=== PATIENT | female | born 1965 | race Caucasian/White ===

== ENCOUNTER 2021-01-30 13:28 | Outpatient (REF) | payer BC, SELFPAY ==
[2021-01-31 01:47] LABS: CT PCR NOT DETECTED (Not Detect.); NG PCR NOT DETECTED (Not Detect.)
[2021-02-02 06:07] LABS: HPV mRNA E6/E7 rflx Not Detected (Not Detected)
== END 2021-01-30 13:29 | disposition home or self-care (01) ==
LOC: HO.LAB 13:28
PROVIDERS: PCP Internal Medicine; Visit Provider Advanced Practice Midwife
DX: Z01.419 Encounter for gynecological examination (general) (routine) without abnormal findings (principal); Z11.51 Encounter for screening for human papillomavirus (HPV); N88.9 Noninflammatory disorder of cervix uteri, unspecified
CPT/HCPCS: 87491; 87591; 87624; 88142

== ENCOUNTER 2021-02-02 08:39 | Outpatient (REF) | payer BC, SELFPAY ==
[2021-02-02 10:05] LABS: Alanine Aminotransferase 16 U/L (0-31); Albumin Level 4.5 g/dL (3.5-5.0); Alkaline Phosphatase 61 U/L (39-117); Anion Gap 12 (12-20); Aspartate Amino Transferase 15 U/L (5-31); Bilirubin Total 0.8 mg/dL (0.0-1.0); Blood Urea Nitrogen 10 mg/dL (9-16); Calcium 9.9 mg/dL (8.4-10.2); Carbon Dioxide 30 mmol/L (22-29); Chloride 102 mmol/L (96-108); Cholesterol 195 mg/dL; Estimated Glomerular Filt Rate > 60; Glucose Fasting 111 mg/dL (60-99); HDL Cholesterol 81 mg/dL; LDL Cholesterol Calculated 102 mg/dl; Potassium 4.2 mmol/L (3.3-5.1); Sodium 140 mmol/L (135-145); Total Protein 7.1 g/dL (6.5-8.0); Triglycerides 63 mg/dL
[2021-02-06 11:16] LABS: Vitamin D 25-OH, D2 <4 ng/mL; Vitamin D 25-OH, D3 24 ng/mL; Vitamin D 25-OH, Total 24 ng/mL (30-100)
== END 2021-02-02 08:40 | disposition home or self-care (01) ==
LOC: HO.LAB 08:39
PROVIDERS: PCP Internal Medicine; Visit Provider Internal Medicine
DX: E66.3 Overweight (principal); E78.5 Hyperlipidemia, unspecified; E55.9 Vitamin D deficiency, unspecified
CPT/HCPCS: 36415; 80053; 80061; 82306

== ENCOUNTER → 2021-02-22 13:55 | Outpatient (BNVA) | payer BC, SELFPAY | PROVIDERS: PCP Internal Medicine; Visit Provider Obstetrics & Gynecology ==

== ENCOUNTER 2021-03-13 15:14 | Outpatient (REF) | payer BC, SELFPAY ==
--- NOTE | ~2021-03-13 | MM_ITS ---
EXAMINATION: MM SCREENING DIGITAL BREAST TOMOSYNTHESIS, BILATERAL CLINICAL INFORMATION: Screening. Asymptomatic. The lifetime risk of breast cancer based on the Tyrer-Cuzick Model is 7%. COMPARISON: Mammography: 01/05/2016, outside exam 02/23/2014 ([facility], [place]). TECHNIQUE: Digital mammography is performed in craniocaudal and mediolateral oblique views along with computer-aided detection (CAD). Digital breast tomosynthesis is performed in implant-displaced craniocaudal and implant-displaced mediolateral oblique views along with computer-aided detection (CAD). Synthesized 2D images are generated from the tomosynthesis. FINDINGS: There are scattered areas of fibroglandular density (ACR BI-RADS breast composition Category b). There are bilateral implants. The implant contours are smooth and similar to prior exams. Parenchymal pattern is similar to prior studies. There is no developing density or interval mass or architectural abnormality. No abnormal calcifications. The skin contours are smooth. MM/MM tomosynthesis screen imp BI IMPRESSION: No mammographic evidence of malignancy. ASSESSMENT: BI-RADS 1: Negative RECOMMENDATION: Routine annual mammography screening. This patient's information was entered into a reminder system with a target due date for their next mammogram.
== END 2021-03-13 15:15 | disposition home or self-care (01) ==
LOC: HO.MAMMO 15:14
PROVIDERS: Visit Provider Advanced Practice Midwife
DX: Z12.31 Encounter for screening mammogram for malignant neoplasm of breast (principal)
CPT/HCPCS: 77063; 77067

== ENCOUNTER → 2022-02-04 12:54 | Outpatient (BNVA) | payer BC, SELFPAY | PROVIDERS: PCP Internal Medicine; Visit Provider Advanced Practice Midwife | DX: Z01.419 Encounter for gynecological examination (general) (routine) without abnormal findings (principal) ==

== ENCOUNTER 2022-03-31 06:19 | Emergency (ER) | payer BC, SELFPAY ==
--- NOTE | 2022-03-31 | ECG_ITS ---
Test Reason : PALPITATIONS Blood Pressure : / mmHG Vent. Rate : 101 BPM Atrial Rate : 101 BPM P-R Int : 132 ms QRS Dur : 084 ms QT Int : 336 ms P-R-T Axes : 068 053 044 degrees QTc Int : 435 ms Sinus tachycardia Nonspecific ST abnormality Abnormal ECG No previous ECGs available Referred By: Kisha Monroy Electronically Signed By:ROSEANN GAGNON MD
--- NOTE | ~2022-03-31 | XR_ITS ---
EXAMINATION: XR CHEST CLINICAL INFORMATION: Cough COMPARISON: None TECHNIQUE: Frontal view of the chest was obtained. FINDINGS: Cardiac leads overlie the chest. The lungs are well expanded. There is no focal consolidation, edema, or effusion. No pneumothorax. The cardiomediastinal silhouette is within normal limits. No acute osseous abnormality. XR/XR chest 1V IMPRESSION: Clear lungs.
[2022-03-31 06:30] VITALS: BP 200/99; PULSE 114; RESP 20; TEMP 36.6; O2SAT 97; BMI 18.9
--- NOTE | 2022-03-31 06:37 | ED.GENADULT ---
HPI - General Adult General Chief complaint: Arrhythmia/Palpitations Stated complaint: Fast heart rate/lump in throat Time Seen by Provider: 03/31/22 06:37 Source: patient Mode of arrival: ambulatory History of Present Illness HPI narrative: 57-year-old female with diagnosis of hypertension approximately 1 year ago but states she did not start taking any medication as she thought she could control it with lifestyle changes by losing weight and cutting salt content who presents with complaints of racing heart and feeling a ?lump at her upper sternal border and then saying that she was having some discomfort to her left upper extremity. The symptoms have been ongoing and worsening for the past 2-3 days, they have been associated with sweating but she denies dizziness or nausea or shortness of breath at this time. She denies chest pain. Related Data Previous Rx's Medication Instructions Recorded hydrochlorothiazide 12.5 mg capsule 12.5 mg PO DAILY #30 caps 03/31/22 Allergies Allergy/AdvReac Type Severity Reaction Status Date / Time No Known Allergies Allergy Verified 02/04/22 13:05 Review of Systems Review of Systems: Pertinent positives and negatives as stated in HPI 10 point review of systems is otherwise negative. [facility] Past Medical History Source: nursing notes reviewed Medical History Essential hypertension Hypovitaminosis D Overweight Surgical History Hx of breast implants, bilateral Family History Family History Unknown Adopted Social History Social History Alcohol intake: current Alcohol intake frequency: former alcohol drinker Alcohol type: wine Patient Tobacco Use Status: Never used Tobacco Use of substances other than those prescribed or required for medical reasons: No Advance Directives: No Gender identity: Female Physical Exam ED Vital Signs: Vital Signs - 24 hr 03/31/22 06:30 03/31/22 07:43 03/31/22 08:03 Temperature 97.9 F Pulse Rate 114 H 82 81 Respiratory Rate 20 20 Blood Pressure 200/99 H 188/88 H 175/83 H Pulse Oximetry 97 Oxygen Delivery Method Room Air 03/31/22 08:15 03/31/22 08:36 03/31/22 09:19 Temperature Pulse Rate 83 81 80 Respiratory Rate Blood Pressure 173/81 H 165/82 H 164/74 H Pulse Oximetry Oxygen Delivery Method BMI result Body Mass Index 18.9 VITAL SIGNS: Reviewed. GENERAL: Well developed, well nourished, in no acute distress. HEAD: Normocephalic/atraumatic, EYES: PERRLA, EOMI EARS: Ext canals without abnormality OROPHARYNX: no oral lesions noted, posterior pharynx clear and non-erythematous without noted tonsillar enlargement/erythema/exudates NECK: Supple, no adenopathy LUNGS: Normal breath sounds. No adventitious sounds or accessory muscle use. SpO2<97> CARDIOVASCULAR: Regular rate and rhythm without noted murmurs, no JVD or lower extremity edema. ABDOMEN: Soft, non-tender, non-distended with bowel sounds. MUSCULOSKELETAL: No tenderness, deformities, or effusions noted on gross inspection. EXTREMITIES: No cyanosis, clubbing or edema. SKIN: Inspection of the skin reveals no rashes NEUROLOGIC: Alert and oriented x 4. Strength and sensation to light touch were grossly intact x 4, no facial asymmetry, no pronator drift, cranial nerves 2-12 grossly intact. Course Course Course Narrative: Do 7-year-old female with history and clinical presentation concerning for possible cardiac event versus thyroid condition (due to the lump) and on EKG is noted to be sinus tachycardia with global ST depressions in the lateral and inferior leads. Patient received aspirin, she is also noted to be hypertensive and otherwise nonfocal and will receive medications for blood pressure reduction as well as basic labs. Review of all investigations negative for findings of an elevated troponin, chest x-ray without acute findings and otherwise no further explanation for patient's symptoms other than hypertensive urgency and on repeat EKG there is been almost complete resolution of noted ST depressions which were likely secondary to the hypertension that she was experiencing. All results were discussed with her bedside she was counseled regarding alcohol use as well as diet and she will go home with initial medications for blood pressure as well as a referral to follow-up with cardiology. Reevaluation(s) Reevaluation #1: Patient states she feels much better, blood pressure has improved significantly after receiving 2.5 mg of labetalol. Patient did endorse that she uses alcohol and knee reluctant manner stated that she does sometimes use every day or every other day and her last drink was yesterday. She denies any headache go or tremulous feelings. She will be discharged on medications and will repeat the EKG. Time: 09:11 Medical Decision Making Lab Data Result diagrams: 03/31/22 06:52 03/31/22 07:30 Labs: Lab Results 03/31/22 03/31/22 03/31/22 Range/Units 06:52 06:52 06:52 WBC 8.5 (4.8-10.8) X10*3/uL RBC 4.22 (4.20-5.50) X10*6/uL Hgb 13.3 (12.0-16.0) g/dl Hct 40.2 (37.0-47.0) % MCV 95.3 (80.0-98.0) fL MCH 31.5 (27.0-33.0) pg MCHC 33.1 (31.0-35.0) g/dl RDW 12.5 (11.0-16.0) % Plt Count 249 (160-400) X10*3/uL MPV 10.4 (9.4-12.3) fL Immature Gran % (Auto) 0.5 H (0.0-0.4) % Neut % (Auto) 70.1 (45-73) % Lymph % (Auto) 18.3 L (20-40) % Crowley % (Auto) 10.0 (2-11) % Eos % (Auto) 0.7 (0-4) % Baso % (Auto) 0.4 (0-2) % Lymph # (Auto) 1.6 (1.2-4.9) X10*3/uL Crowley # (Auto) 0.9 (0.1-1.2) X10*3/uL Eos # (Auto) 0.1 (0.0-0.4) X10*3/uL Baso # (Auto) 0.0 (0.0-0.2) X10*3/uL Abs Immat Gran (auto) 0.04 H (0.00-0.03) X10*3/uL Absolute Neuts (auto) 6.0 (2.0-8.3) x10*3/uL Absolute Nucleated RBC 0.000 (0.0-0.012) X10*3/uL Nucleated RBC % (auto) 0.0 (0.0-0.2) /100WBC PT 10.3 (10.0-13.1) SEC INR 0.9 (0.9-1.1) Sodium (135-145) mmol/L Potassium (3.3-5.1) mmol/L Chloride (96-108) mmol/L Carbon Dioxide (22-29) mmol/L Anion Gap (12-20) BUN (9-16) mg/dL Creatinine (0.5-1.4) mg/dL Estim Creat Clear Calc Estimated GFR Random Glucose (60-115) mg/dL Calcium (8.4-10.2) mg/dL Total Bilirubin (0.0-1.0) mg/dL AST (5-31) U/L ALT (0-31) U/L Alkaline Phosphatase (39-117) U/L Troponin I High Sens (<3.5-17.0) ng/L Total Protein (6.5-8.0) g/dL Albumin (3.5-5.0) g/dL TSH (0.32-4.0) uIU/mL Urine Color Urine Appearance Urine pH (5.0-8.0) Ur Specific [place] (1.005-1.025) Urine Protein (NEG-TRACE) MG/DL Urine Glucose (UA) (NEG) MG/DL Urine Ketones (NEG) MG/DL Urine Blood (NEG) Urine Nitrite (NEG) Ur Leukocyte Esterase (NEG) COVID-19 (KI) Negative (Negative) COVID-19 Clin Com See Note 03/31/22 03/31/22 03/31/22 Range/Units 06:52 07:30 08:39 WBC (4.8-10.8) X10*3/uL RBC (4.20-5.50) X10*6/uL Hgb (12.0-16.0) g/dl Hct (37.0-47.0) % MCV (80.0-98.0) fL MCH (27.0-33.0) pg MCHC (31.0-35.0) g/dl RDW (11.0-16.0) % Plt Count (160-400) X10*3/uL MPV (9.4-12.3) fL Immature Gran % (Auto) (0.0-0.4) % Neut % (Auto) (45-73) % Lymph % (Auto) (20-40) % Crowley % (Auto) (2-11) % Eos % (Auto) (0-4) % Baso % (Auto) (0-2) % Lymph # (Auto) (1.2-4.9) X10*3/uL Crowley # (Auto) (0.1-1.2) X10*3/uL Eos # (Auto) (0.0-0.4) X10*3/uL Baso # (Auto) (0.0-0.2) X10*3/uL Abs Immat Gran (auto) (0.00-0.03) X10*3/uL Absolute Neuts (auto) (2.0-8.3) x10*3/uL Absolute Nucleated RBC (0.0-0.012) X10*3/uL Nucleated RBC % (auto) (0.0-0.2) /100WBC PT (10.0-13.1) SEC INR (0.9-1.1) Sodium 137 (135-145) mmol/L Potassium 4.5 (3.3-5.1) mmol/L Chloride 102 (96-108) mmol/L Carbon Dioxide 24 (22-29) mmol/L Anion Gap 16 (12-20) BUN 6 L (9-16) mg/dL Creatinine 0.71 (0.5-1.4) mg/dL Estim Creat Clear Calc 69.6 Estimated GFR > 60 Random Glucose 122 H (60-115) mg/dL Calcium 9.5 (8.4-10.2) mg/dL Total Bilirubin 0.8 (0.0-1.0) mg/dL AST 25 D (5-31) U/L ALT 16 (0-31) U/L Alkaline Phosphatase 84 D (39-117) U/L Troponin I High Sens < 3.5 (<3.5-17.0) ng/L Total Protein 7.7 (6.5-8.0) g/dL Albumin 4.6 (3.5-5.0) g/dL TSH 0.98 (0.32-4.0) uIU/mL Urine Color STRAW Urine Appearance CLEAR Urine pH 7.0 (5.0-8.0) Ur Specific [place] <= 1.005 (1.005-1.025) Urine Protein NEG (NEG-TRACE) MG/DL Urine Glucose (UA) NEG (NEG) MG/DL Urine Ketones NEG (NEG) MG/DL Urine Blood NEG (NEG) Urine Nitrite NEG (NEG) Ur Leukocyte Esterase NEG (NEG) COVID-19 (KI) (Negative) COVID-19 Clin Com ECG Data Attestation: I personally reviewed and interpreted this ECG as follows: Prior ECG tracings: not available for review Interpretation: Sinus tachycardia, HR-101, no STEMI, ST depressions noted in V4/V5/B 6/lead I/lead II, CT/QRS/QTC are within normal limits. 1036: Normal sinus rhythm, heart rate 79, no STEMI, CT/QRS/QTC are within normal limits. There are remaining ST-T abnormalities. Discharge Plan Discharge Clinical Impression: Hypertensive urgency, Nonspecific ST-T changes Patient Disposition: Home, Self-Care Instructions: DASH Eating Plan (ED), Hypertensive Crisis (ED), Hypertension (ED), Alcohol Dependence (ED) Additional Instructions: 1. You need to start on 81 mg of aspirin daily. This is available [id number]. 2. You have been prescribed initial medication for high blood pressure, but you should also consider stopping alcohol intake in if you require supervision for this please notify your primary care provider. 3. You need to follow-up with cardiology for further testing, a referral has been provided to you below. 4. Call the office of your primary care provider today and schedule a follow-up appointment. Return to the ER for any worsening of symptoms. Prescriptions: New hydrochlorothiazide 12.5 mg capsule 12.5 mg PO DAILY Qty: 30 0RF Referrals: Adamaris Cantu MD [Primary Care Provider] - Raul Garcia MD [Physician] -
[2022-03-31 07:00] LABS: MANUAL DIFF FLAG NO
[2022-03-31 07:04] LABS: Basophils Percent Auto 0.4 % (0-2); Eosinophils Absolute Auto 0.1 X10*3/uL (0.0-0.4); Eosinophils Percent Auto 0.7 % (0-4); Hematocrit 40.2 % (37.0-47.0); Hemoglobin 13.3 g/dl (12.0-16.0); Imm Gran Abs Auto 0.04 X10*3/uL (0.00-0.03); Imm Gran Pct Auto 0.5 % (0.0-0.4); Lymphocytes Absolute Auto 1.6 X10*3/uL (1.2-4.9); Lymphocytes Percent Auto 18.3 % (20-40); Mean Corpuscular HGB Conc 33.1 g/dl (31.0-35.0); Mean Corpuscular Hemoglobin 31.5 pg (27.0-33.0); Mean Corpuscular Volume 95.3 fL (80.0-98.0); Mean Platelet Volume 10.4 fL (9.4-12.3); Monocytes Absolute Auto 0.9 X10*3/uL (0.1-1.2); Neutrophils Percent Auto 70.1 % (45-73); Platelet Count 249 X10*3/uL (160-400); Red Blood Count 4.22 X10*6/uL (4.20-5.50); Red Cell Distribution Width 12.5 % (11.0-16.0); White Blood Count 8.5 X10*3/uL (4.8-10.8)
[2022-03-31 07:11] LABS: INTERNATIONAL NORM RATIO 0.9 (0.9-1.1); Prothrombin Time 10.3 SEC (10.0-13.1)
[2022-03-31 07:19] LABS: COVID-19 Test Negative (Negative); IDNOW Serial# 55D5AD1C
[2022-03-31 07:27] LABS: Troponin-I High Sensitivity < 3.5 ng/L (<3.5-17.0)
[2022-03-31] MEDS: Aspirin 81 MG TAB.CHEW 324 MG PO (07:41)
[2022-03-31 07:43] VITALS: BP 188/88; PULSE 82; RESP 20
[2022-03-31 08:02] LABS: Alanine Aminotransferase 16 U/L (0-31); Albumin Level 4.6 g/dL (3.5-5.0); Alkaline Phosphatase 84 U/L (39-117); Anion Gap 16 (12-20); Aspartate Amino Transferase 25 U/L (5-31); Bilirubin Total 0.8 mg/dL (0.0-1.0); Blood Urea Nitrogen 6 mg/dL (9-16); Calcium 9.5 mg/dL (8.4-10.2); Carbon Dioxide 24 mmol/L (22-29); Chloride 102 mmol/L (96-108); Creatinine Clr Calc Pharmacy 69.6; Estimated Glomerular Filt Rate > 60; Glucose Random 122 mg/dL (60-115); Potassium 4.5 mmol/L (3.3-5.1); Sodium 137 mmol/L (135-145); Total Protein 7.7 g/dL (6.5-8.0)
[2022-03-31 08:03] VITALS: BP 175/83; PULSE 81
[2022-03-31 08:15] VITALS: BP 173/81; PULSE 83
[2022-03-31 08:20] LABS: Thyroid Stimulating Hormone 0.98 uIU/mL (0.32-4.0)
[2022-03-31 08:36] VITALS: BP 165/82; PULSE 81
[2022-03-31 08:46] LABS: Appearance Urine CLEAR; Color Urine STRAW; Glucose Urine UA NEG (NEG); Leukocyte Esterase Urine NEG (NEG); Nitrite Urine NEG (NEG); Specific Gravity - Urine <= 1.005 (1.005-1.025); Urine Blood NEG (NEG); Urine Ketones NEG (NEG); Urine Protein NEG (NEG-TRACE)
--- NOTE | 2022-03-31 09:14 | ECG_ITS ---
Test Reason : SOB Blood Pressure : / mmHG Vent. Rate : 079 BPM Atrial Rate : 079 BPM P-R Int : 154 ms QRS Dur : 086 ms QT Int : 396 ms P-R-T Axes : 060 039 042 degrees QTc Int : 454 ms Normal sinus rhythm Nonspecific ST and T wave abnormality Abnormal ECG When compared with ECG of 31-MAR-2022 06:17, Nonspecific T wave abnormality now evident in Anterior leads Referred By: Kisha Monroy Electronically Signed By:ROSEANN GAGNON MD
[2022-03-31 09:19] VITALS: BP 164/74; PULSE 80
== END 2022-03-31 11:14 | disposition home or self-care (01) ==
PROVIDERS: Emergency Provider Student in an Organized Health Care Education/Training Program; PCP Internal Medicine
DX: I49.9 Cardiac arrhythmia, unspecified (principal); R00.2 Palpitations; I16.0 Hypertensive urgency; Z20.822 Contact with and (suspected) exposure to COVID-19; Z79.899 Other long term (current) drug therapy
CPT/HCPCS: 36415; 71045; 80053; 81003; 84443; 84484; 85025; 85610; 87635; 93005; 96374; 99284; 99285

== ENCOUNTER 2022-09-27 10:35 | Outpatient (REF) | payer BC, SELFPAY ==
--- NOTE | ~2022-09-27 | MM_ITS ---
EXAMINATION: MM SCREENING DIGITAL BREAST TOMOSYNTHESIS, BILATERAL CLINICAL INFORMATION: Screening. Asymptomatic. The lifetime risk of breast cancer based on the Tyrer-Cuzick Model is 6%. COMPARISON: Mammography: 03/13/2021, 01/05/2016; outside mammography 02/23/2014 ([facility]). TECHNIQUE: Digital mammography is performed in craniocaudal and mediolateral oblique views along with computer-aided detection (CAD). Digital breast tomosynthesis is performed in implant-displaced craniocaudal and implant-displaced mediolateral oblique views along with computer-aided detection (CAD). Synthesized 2D images are generated from the tomosynthesis. FINDINGS: There are scattered areas of fibroglandular density (ACR BI-RADS breast composition Category b). There are no significant masses, abnormal calcifications, or other abnormalities. No architectural abnormality or developing density. There is a small dermal lesion again seen overlying the lower right breast on MLO view, previously marked with skin marker. There are bilateral implants with smooth contours are similar to prior studies. The axilla are unremarkable. MM/MM tomosynthesis screen imp BI IMPRESSION: No mammographic evidence of malignancy. ASSESSMENT: BI-RADS 2: Benign RECOMMENDATION: Routine annual mammography screening. This patient's information was entered into a reminder system with a target due date for their next mammogram.
== END 2022-09-27 10:36 | disposition home or self-care (01) ==
LOC: HO.MAMMO 10:35
PROVIDERS: PCP Internal Medicine; Visit Provider Advanced Practice Midwife
DX: Z12.31 Encounter for screening mammogram for malignant neoplasm of breast (principal)
CPT/HCPCS: 77063; 77067

== ENCOUNTER → 2023-02-10 12:58 | Outpatient (BNVA) | payer BC, SELFPAY | PROVIDERS: PCP Internal Medicine; Visit Provider Advanced Practice Midwife ==

== ENCOUNTER 2023-03-31 13:47 | Outpatient (REF) | payer BC, SELFPAY | END 2023-03-31 13:48 | disposition home or self-care (01) | LOC: HO.LNP 13:47 | PROVIDERS: PCP Internal Medicine; Visit Provider Obstetrics & Gynecology | DX: N88.9 Noninflammatory disorder of cervix uteri, unspecified (principal); R14.0 Abdominal distension (gaseous) | CPT/HCPCS: 57500; 88305 ==

== ENCOUNTER 2023-03-31 13:47 | Outpatient (AMB) | payer BC, SELFPAY ==
--- NOTE | 2023-03-31 13:56 | MHC.OFFVIS ---
Intake Vital Signs 03/31/23 14:00 Height 5 ft 5 in Weight 147 lb BMI 24.5 BP 140/90 H Intake Visit Reasons: cervical lesion Consult Electrocardiograph Operator Required: No Information Interpreted: non-clinical & clinical Chemical Laboratory Scientist: Chemical Laboratory Scientist Present (Jenny) Allergies No Known Allergies Allergy (Verified 03/31/23 14:02) Is last menstrual period known: No Post menopausal: Yes HPI HPI Comments History of Present Illness Details Presenting referred from Sarahy Estrada regarding abnormal cervical lesion on pelvic exam. Last Pap smear/HPV was in 02/08 was negative. The patient is complaining of bloating over the last few months no associated vaginal bleeding or discharge PFSH Medical History Essential hypertension Hypovitaminosis D Overweight Surgical History Hx of breast implants, bilateral Family History Unknown Adopted Social History Housing: House Alcohol intake: current Alcohol intake frequency: a few times a week Alcohol type: wine Patient Tobacco Use Status: Never used Tobacco e-Cigarette/Vaping Use: Never Used Second Hand Smoke Exposure: No service: No Current occupational status: employed Current occupational exposures/hazards: No Gender identity: Female Cognitive needs: No Hearing needs: No Vision needs: Yes Female Reproductive History Menstrual Age of Menarche: 11 control method: none Total pregnancies: 4 Full term: 4 Number of Living Children: 4 Date of last pap smear: 01/31/21 (negative) Review of Systems Const All systems reviewed & are unremarkable except as noted in HPI and below Physical Exam Vital Signs: Last Vital Signs BP 140/90 H 03/31/23 14:00 BMI result Body Mass Index 24.5 General: Yes no CVA tenderness External Female Exam: normal external appearance and normal appearance of the urethra Speculum Exam - Vagina: normal appearance of the vagina, normal palpation, no lesions and no masses Speculum Exam - Cervix: normal palpation, no lesions, no masses, nontender and Other cervical findings present (Posterior cervical lesion) Bimanual exam- vagina & uterus: normal bimanual exam, normal palpation, uterine size normal, normal palpation, uterine shape normal, No Cervical tenderness present and non-tender Bimanual Exam- Adnexa, other: normal adnexae Back/Spine/Pelvis Back: no CVA tenderness Office Procedures RESPIRATORY DIRECTOR Biopsy Before the procedure was started, discussed with the patient the procedure technique, alternatives & all the risks associated with the procedure including but not limited to: bleeding , infection, uterine perforation, injury to bladder, vessels, bowels, possible need for transfusion with all its risks, and others. All questions were answered, the patient verbalized understanding and signed the consent. Using a punch biopsy forceps the posterior cervical lesion was biopsy, hemostasis was secured using Monsel solution and pressure. The patient tolerated the procedure well. Instructions were given to the patient to call if bleeding, temp>100.4 occur. The patient verbalized understanding and agreed with the plan. This note was generated with a voice recognition program. Some errors may have been overlooked during the review of this note. Sometimes these errors may affect the content or meaning of a given sentence. [id number] of Cervix Procedure code (CPT) selection complete Assessment & Plan Assessment & Plan (1) Lesion of cervix: Code(s): N88.9 - Noninflammatory disorder of cervix uteri, unspecified Plan: Discussed with the patient the finding on pelvic exam showing a posterior cervical lesion, recommended cervical biopsy. Biopsy done, see procedure note (2) Bloating: Code(s): R14.0 - Abdominal distension (gaseous) Plan: Will order pelvic ultrasound to rule out uterine/ovarian pathology. Instructions given the patient to schedule a 2 week ultrasound follow-up appointment Orders: Orders US pelvic and transvaginal Today R14.0 - Abdominal distension (gaseous) AMB RESPIRATORY DIRECTOR Biopsy Today N88.9 - Noninflammatory disorder of cervix uteri, unspecified Coding Level of Care Code Est Pt Level 3 (00392) Procedure Only Diagnoses Lesion of cervix N88.9 Bloating R14.0 CPT Codes RESPIRATORY DIRECTOR Biopsy - CPT: 25880-Wejmxa of Cervix ([id number])
[2023-03-31 14:00] VITALS: BP 140/90; BMI 24.5
== END 2023-03-31 15:27 | disposition home or self-care (01) ==
LOC: HO.HWS 13:47
PROVIDERS: PCP Internal Medicine; Visit Provider Obstetrics & Gynecology
DX: N88.9 Noninflammatory disorder of cervix uteri, unspecified (principal); R14.0 Abdominal distension (gaseous)
CPT/HCPCS: 57500; 99213

== ENCOUNTER 2023-04-10 15:47 | Outpatient (REF) | payer BC, SELFPAY ==
--- NOTE | ~2023-04-10 | US_ITS ---
EXAMINATION: US PELVIS CLINICAL INFORMATION: Gaseous abdominal distention, last menstrual period 15 years ago. Postmenopausal. COMPARISON: None available. TECHNIQUE: Transabdominal and transvaginal ultrasound images of the pelvis were obtained. Limited visualization due to bowel gas. FINDINGS: The uterus is heterogeneous, anteverted and measures 6.6 x 2.0 x 3.7 cm. No discrete fibroids identified. There is no significant free fluid. Endometrial thickness is 0.4 cm. Limited visualization of endometrium due to uterine positioning and bowel gas. Left ovary not visualized. Prominent left adnexal vasculature may represent pelvic congestion syndrome. Right ovary measures 1.1 x 1.8 x 0.8 cm, volume 0.8 mL. Right ovary is grossly unremarkable on limited images. US/US pelvic and transvaginal IMPRESSION: 1. Heterogeneous uterus. No discrete fibroids. 2. Endometrial thickness is 0.4 cm. Limited visualization. 3. Left ovary not visualized. Right ovary grossly unremarkable on limited images. 4. Prominent left adnexal vasculature may represent pelvic congestion syndrome. 5. Limited visualization due to bowel gas.
== END 2023-04-10 15:48 | disposition home or self-care (01) ==
LOC: HO.US 15:47
PROVIDERS: PCP Internal Medicine; Visit Provider Obstetrics & Gynecology
DX: R14.0 Abdominal distension (gaseous) (principal)
CPT/HCPCS: 76830; 76856

== ENCOUNTER → 2023-04-30 15:11 | Outpatient (BNVA) | payer BC, SELFPAY | PROVIDERS: PCP Internal Medicine; Visit Provider Obstetrics & Gynecology ==

== ENCOUNTER 2023-06-08 06:29 | Day surgery (SDC) | payer BC, SELFPAY ==
[2023-06-08 06:59] VITALS: BP 152/89; PULSE 76; RESP 18; TEMP 36.1; O2SAT 100; BMI 24.1
--- NOTE | 2023-06-08 07:23 | HO.ANESPROP2 ---
HPI - Anesthesia Eval Consult details Narrative: 58 F for colonoscopy PMFSH Active Problems Active Problems: All Active Problems (Updated 03/31/23 @ 14:12 by Everardo Lopez MD) Bloating (Acute) Tubular adenoma (Acute) Physical exam (Acute) Impaired glucose tolerance (Acute) Hospital discharge follow-up (Acute) Rosacea (Acute) Abnormal EKG (Acute) Encounter for screening mammogram for malignant neoplasm of breast (Acute) Encounter for annual routine gynecological examination (Acute) Essential hypertension (Acute) Lesion of cervix (Acute) Hypovitaminosis D (Acute) Overweight (Acute) Past Medical History Medical History Essential hypertension Hypovitaminosis D Overweight Functional capacity: independent ambulation Family History Family History (Reviewed 04/30/23 @ 15: by Everardo Lopez MD) Unknown Adopted Family history of problems with anesthesia: Unobtainable Surgical History Surgical History (Reviewed 04/30/23 @ 15: by Everardo Lopez MD) Hx of breast implants, bilateral History of Problems with Anesthesia: No Social History Social History Housing: House Alcohol intake: current Alcohol intake frequency: a few times a week Alcohol type: wine Patient Tobacco Use Status: Never used Tobacco e-Cigarette/Vaping Use: Never Used Second Hand Smoke Exposure: No Have you been hit, kicked, punched, or otherwise hurt by someone within the past year? If so, by whom?: No Are you DNR?: No Advance Directives: No Advance Directives Information Provided: Yes Recently lost weight without trying: No Eating poorly because of decreased appetite: No Nutrition Risks: No Nutritional Risk Patient : No service: No Current occupational status: employed Current occupational exposures/hazards: No Gender identity: Female Cognitive needs: No Hearing needs: No Vision needs: Yes Meds Allergies Allergy/AdvReac Type Severity Reaction Status Date / Time No Known Allergies Allergy Verified 04/30/23 15:11 Active Medications: Current Medications Sodium Biphosphate/Sodium Phosphate (Sodium Phosphate,[place]-Dibasic 133 Ml Enema) 133 ml NC ONCE PRN PRN Reason: Poor Colonoscopy Prep Results Exam Exam Date and Time: June 08, 2023 0723 Height,Weight and Vital Signs: Height 5 ft 5 in Weight 65.771 kg Last Vital Signs Temp 96.9 F 06/08/23 06:59 Pulse 76 06/08/23 06:59 Resp 18 06/08/23 06:59 BP 152/89 H 06/08/23 06:59 Pulse Ox 100 06/08/23 06:59 O2 Del Method Room Air 06/08/23 06:59 Airway Mallampati Class: IV Neck ROM: Full Loose/Missing/Broken Teeth: Yes Assessment and Plan Assessment Anesthesia Assessment: Anesthesia Plan Discussed and Chart Reviewed Final Anesthetic Review Family History of Problems with Anesthesia: Unobtainable History of Problems with Anesthesia: No NPO: Yes ASA Class: II Final Preanesthetic Review: Meds/Allgs Chart Reviewed, Consent Obtained/Reviewed and Anes Risks/Benef Reviewed Patient Risk: Intermediate Procedure Risk: Intermediate Anesthetic Plan Anesthetic Plan: MAC: Disposition: Standard PACU
[2023-06-08] MEDS: Lactated Ringers 1,000 ML 100 ML IVCONT (07:25)
[2023-06-08 08:23] VITALS: BP 107/66; PULSE 87; RESP 16; TEMP 36.7; O2SAT 100
--- NOTE | 2023-06-08 08:28 | P.BOP_ITS ---
Brief Operative Note Date of Service: 06/08/23 Pre-op diagnosis: Screening Post-op diagnosis: other (Diverticulosis) Procedure: Colonoscopy to the cecum Surgeon: Kang Villa Anesthesia: MAC Was an Home Improvement Advisor used for this Procedure?: No Estimated blood loss (mL): 0 Pathology: none sent Condition: stable Disposition: PACU
[2023-06-08 08:37] VITALS: BP 125/71; PULSE 60; RESP 18; O2SAT 98
[2023-06-08 08:55] VITALS: TEMP 36.7
--- NOTE | 2023-06-08 09:09 | OP_ITS ---
DATE OF SERVICE: 06/08/2023 SURGEON: Kang Villa MD INDICATIONS: The patient presents for evaluation of personal history of tubular adenoma of the colon and colorectal cancer screening. Full consent has been obtained from her for this, including risks of bleeding and perforation. PREOPERATIVE DIAGNOSIS: POSTOPERATIVE DIAGNOSIS: PROCEDURE PERFORMED: Colonoscopy to the cecum. ESTIMATED BLOOD LOSS: COMPLICATIONS: ANESTHESIA: Medication used, monitored anesthesia care. ASSISTANTS: SPECIMENS: PREOPERATIVE DIAGNOSES: Colorectal cancer screening and personal history of tubular adenoma of the colon. POSTOPERATIVE DIAGNOSES: Colorectal cancer screening and personal history of tubular adenoma of the colon, mild sigmoid diverticulosis, small internal hemorrhoids. DESCRIPTION OF PROCEDURE: The patient was placed in the left lateral decubitus position. The digital rectal exam revealed no abnormalities. The Olympus videopediatric colonoscope was entered into the rectum and advanced easily to the cecum. Once in the cecum, I did identify normal-appearing cecal pouch with appendiceal orifice and a normal-appearing ileocecal valve. There was transillumination of light deep in the right lower quadrant. The entire cecum and ileocecal valve appeared normal. The scope was slowly withdrawn assessing all mucosal surfaces carefully. Preparation was excellent. I did not visualize any sign of polyps, colitis, nor angiodysplasia. There was a mild amount of sigmoid diverticulosis. In the rectum, scope was retroflexed visualizing internal hemorrhoids, but no other pathology. The rectal mucosa appeared normal. The scope was straightened and withdrawn from the patient. She tolerated the procedure well and was returned to the recovery area in stable condition. IMPRESSION: 1. Mild sigmoid diverticulosis. 2. Small internal hemorrhoids. PLAN: Given her previous history, I would recommend a followup colonoscopy in 5 years for further screening. She will otherwise see me on a p.r.n. basis. MD BROOKE Jessica/DAISHA / [phone]
== END 2023-06-08 09:09 | disposition home or self-care (01) ==
PROVIDERS: PCP Internal Medicine; Visit Provider Internal Medicine
PROC: 0DJD8ZZ Inspection of Lower Intestinal Tract, Via Natural or Artificial Opening Endoscopic (ICD-10-PCS; CPT 45378; principal; 2023-06-08 07:30)
DX: Z12.11 Encounter for screening for malignant neoplasm of colon (principal); K57.30 Diverticulosis of large intestine without perforation or abscess without bleeding; K64.8 Other hemorrhoids; Z86.010 Personal history of colon polyps; I10 Essential (primary) hypertension; Z79.899 Other long term (current) drug therapy
CPT/HCPCS: 45378

== ENCOUNTER 2024-02-16 13:02 | Outpatient (AMB) | payer BC, SELFPAY ==
[2024-02-16 13:12] VITALS: BP 156/84; BMI 23.7
--- NOTE | 2024-02-16 13:12 | A.OFFVIS_ITS ---
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 She is doing well with no concerns. Attempting to eat a healthy diet with calcium and vitamin D and stays active with exercise. Currently not sexually active. Denies any vaginal dryness or irritation. STI testing offered; she declined. Last pap smear; 2020. Last mammogram; 2022. Colonoscopy is UTD. Patient is adopted, no family history. [facility] Medical History (Updated 02/16/24 @ 13:25 by Sarahy Estrada CNM) Essential hypertension Overweight Surgical History Hx of breast implants, bilateral Family History Unknown Adopted Social History Housing: House Alcohol intake: current Alcohol intake frequency: a few times a week Alcohol type: wine Patient Tobacco Use Status: Never used Tobacco e-Cigarette/Vaping Use: Never Used Second Hand Smoke Exposure: No service: No Current occupational status: employed Current occupational exposures/hazards: No Gender identity: Female Cognitive needs: No Hearing needs: No Vision needs: Yes Female Reproductive History Menstrual Age of Menarche: 11 Age of menopause: 41 Total pregnancies: 4 Full term: 4 Date of last pap smear: 01/31/21 History of abnormal pap smear: No Date of Mammogram: 10/28/22 Review of Systems Const All systems reviewed & are unremarkable except as noted in HPI and below Reports as per HPI Eyes Reports no additional complaints ENT Reports no additional complaints Card Reports no additional complaints Resp Reports no additional complaints GI Reports as per HPI and Reports no additional complaints Reports as per HPI Musc Reports no additional complaints Skin/Breast Reports as per HPI Neuro Reports no additional complaints Psych Reports no additional complaints Endo Reports no additional complaints Mango/Lymph Reports no additional complaints Aller/Immun Reports no additional complaints Physical Exam Vital Signs: Last Vital Signs BP 156/84 H 02/16/24 13:12 BMI result Body Mass Index 23.7 Const General: cooperative, healthy appearing, no acute distress, well developed and alert Orientation/consciousness: patient oriented x3 HEENT Head: Yes normal to inspection Eyes General: appearance normal, both eyes and all related structures Neck Neck: Yes normal visual inspection Thyroid: Thyroid normal Chest Chest palpation & inspection: normal inspection of the chest and other (no puckering, dimpling, peau de orange, retraction, discharge, masses) Breast/axilla inspection: normal inspection of the breasts Breast/axilla palpation: normal palpation of the breasts Resp Effort & Inspection: normal respiratory effort GI Inspection: Yes normal to inspection Palpation (GI): Soft to palpation Rectal Exam - Female: deferred General: Yes bladder normal to palpation External Female Exam: normal external appearance and normal appearance of the urethra Speculum Exam - Vagina: normal appearance of the vagina, normal palpation and normal vaginal discharge Speculum Exam - Cervix: normal appearance of the cervix and normal palpation Bimanual exam- vagina & uterus: normal bimanual exam, normal palpation, uterine size normal, bladder normal to palpation, normal palpation and non-tender Bimanual Exam- Adnexa, other: no masses Skin General skin exam: no rashes or lesions noted Rashes: no rashes Neuro General: patient oriented x3 Cognition (Neuro): normal cognition Extrem General: Yes normal to inspection Psych Attitude: cooperative Thought process: Normal thought process present Assessment & Plan Assessment & Plan (1) Encounter for well woman exam with routine gynecological exam: Code(s): Z01.419 - Encounter for gynecological examination (general) (routine) without abnormal findings Category: Medical Plan Discussed: Current recommendations for pap smears per ASCCP guidelines. Breast awareness, periodic self breast exams and yearly mammogram. Maintain a healthy lifestyle, well balanced diet including Calcium 1,200 mg and Vitamin D 600 IU daily, and routine exercise. Use of condoms for STI if indicated. Contact the office with any postmenopausal bleeding. Patient verbalizes understanding and agrees to the plan of care. She was given opportunity to ask questions and all questions were answered to the best of my ability. RTO in 1 year for annual apprentice technician exam. This note is constructed using voice recognition software. While every effort has been made to ensure accuracy, dam attendant errors may have been included. Coding Level of Care Code Est Pt Prev Care 40-64y(76744) Diagnoses Encounter for well woman exam with routine gynecological exam Z01.419
== END 2024-02-16 13:41 | disposition home or self-care (01) ==
LOC: HO.HWS 13:02
PROVIDERS: PCP Internal Medicine; Visit Provider Advanced Practice Midwife
DX: Z01.419 Encounter for gynecological examination (general) (routine) without abnormal findings (principal)
CPT/HCPCS: 99396

== ENCOUNTER → 2024-02-16 13:02 | Outpatient (BNVA) | payer BC, SELFPAY | PROVIDERS: PCP Internal Medicine; Visit Provider Advanced Practice Midwife ==

== ENCOUNTER 2024-10-05 08:26 | Outpatient (AMB) | payer BC, SELFPAY ==
[2024-10-05 08:37] VITALS: BP 158/90; BMI 25.6
--- NOTE | 2024-10-05 08:37 | MHC.PC.OV ---
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 Accompanied by: Self / Same As Patient Allergies No Known Allergies Allergy (Verified 10/05/24 08:52) Medication List - Last Reconciled 10/05/24 by Adamaris Centeno MD blood pressure monitor As directed losartan 25 mg PO DAILY 90 days Tobacco use date assessed: 10/05/24 Dental Screening Dental Screen Date: 10/05/24 Did you have a dental visit in the last 12 months?: Yes Did you have a dental problem in the last 6 months where you did not have access to dental care?: No Was dental information given to patient?: Patient has dentist HPI HPI Comments History of Present Illness Details The patient is a 59-year-old female presenting for her annual physical examination. During the visit, it was noted that her blood pressure was slightly elevated despite compliance with her Losartan medication, suggesting persistent Essential Hypertension. This condition was previously diagnosed, and she has been taking Losartan as part of her management plan. It appears there has been no significant change in her condition, and a follow-up blood pressure check is planned in three weeks. Additionally, there is a concern about weight gain. The patient reports an increase in weight from 142 pounds last year to 154 pounds this year, though she has not made major changes to her diet except around Thanksgiving and [place]. Lack of physical exercise due to cold weather and being busy likely contributed to her weight gain. The patient has a past history of maintaining a lower weight, indicating a recent change in her weight trajectory. Her current BMI is calculated at 25.6, indicating an overweight status but not obesity. - Blood pressure re-evaluation in three weeks - Routine blood work including cholesterol, glucose, kidney, and liver function tests - Monitoring of BMI and weight, with recommendations for dietary management and exercise to maintain a healthy weight - Colonoscopy completed in 2022, with the next recommended in 2027 - Pap smear with HPV negative done in 2020 - Mammogram normal last year, system record indicates 2022 - Tetanus booster vaccine administered in 2020, next due in 2030 [facility] Medical History Essential hypertension Overweight Surgical History Hx of breast implants, bilateral Family History Unknown Adopted Social History Housing: House Alcohol intake: current Alcohol intake frequency: a few times a week Alcohol type: wine Patient Tobacco Use Status: Never used Tobacco e-Cigarette/Vaping Use: Never Used Second Hand Smoke Exposure: No service: No Current occupational status: employed Current occupational exposures/hazards: No Gender identity: Female Cognitive needs: No Hearing needs: No Vision needs: Yes Female Reproductive History Menstrual Age of Menarche: 11 Questionnaire PHQ-9 Over the last 2 weeks, how often have you been bothered by any of the following problems? 1. Little interest or pleasure in doing things: not at all 2. Feeling down, depressed, or hopeless: not at all 3. Trouble falling or staying asleep, or sleeping too much: not at all 4. Feeling tired or having little energy: not at all 5. Poor appetite or overeating: not at all 6. Feeling bad about yourself - or that you are a failure or have let yourself or your family down: not at all 7. Trouble concentrating on things, such as reading the newspaper or watching television: not at all 8. Moving or speaking so slowly that other people could have noticed. Or the opposite - being so fidgety or restless that you have been moving around a lot more than usual: not at all 9. Thoughts that you would be better off or of hurting yourself in some way: not at all Total score: 0 Depression Screening Interpretation: Negative Depression Screening Done: Yes 73962 - PHQ-9 Billing: Yes Source: Developed by Drs. Kang Gonzalez, Gabriela Barnard, Dariel Myles and colleagues, with an educational fernandez from [employer]. Thrive Questionnaire Date Thrive assessed: 10/05/24 I am a: Patient What is your living situation today?: I have a steady place to live Within the past 12 months, did the food you bought not last and you didn't have the money to get more?: Never true Within the past 12 months, did you worry whether your food would run out before you got money to buy more?: Never true Do you have trouble paying for medicines?: No Do you have trouble getting transportation to medical appointments?: No Do you have trouble paying your heating and electricity bill?: No Do you have trouble taking care of your child, family member or friend?: No Do you have trouble with day-to-day activities such as bathing, preparing meals, shopping, managing finances, etc.?: No Are you currently unemployed and looking for a job?: No Are you interested in more education?: No Please select the resources that you would like help with: None Currently or been in a relationship where the following occur: No concerns reported THRIVE Score: 0 AUDIT C Alcohol Use Questionnaire (AUDIT-C) 1. How often do you have a drink containing alcohol?: 2-3 times a week 2. How many drinks containing alcohol do you have on a typical day when you are drinking?: 1 or 2 3. How often do you have six or more drinks on one occasion?: Never Total Score: 3 CHRISTINA-7 AMB Questionnaire CHRISTINA-7 Date CHRISTINA - 7 assessed: 10/05/24 Feeling nervous, anxious, or on edge: 0 = Not at all Not being able to stop or control worryin = Not at all Worrying too much about different things: 0 = Not at all Trouble relaxin = Not at all Being so restless that it is hard to sit still: 0 = Not at all Becoming easily annoyed or irritable: 0 = Not at all Feeling afraid as if something awful might happen: 0 = Not at all Total CHRISTINA-7 score (0-4 normal; 5-9 mild; 10-14 moderate; 15-21 severe): 0 Source: Developed by Drs. Kang Gonzalez, Gabriela Barnard, Dariel Myles and colleagues, with an educational fernandez from [employer]. CHRISTINA-7 Assessment Billing CHRISTINA-7 Assessment Tool: CHRISTINA-7 Assessment 46771 Review of Systems Const All systems reviewed & are unremarkable except as noted in HPI and below Card Denies chest pain at rest, Denies chest pain with activity, Denies edema, Denies irregular heart rhythm, Denies claudication, Denies dyspnea, Denies dyspnea on exertion, Denies orthopnea, Denies paroxysmal nocturnal dyspnea and Denies slow heart rate Resp Denies cough, Denies dyspnea and Denies dyspnea on exertion GI Denies abdominal pain, Denies change in bowel habits, Denies excessive flatus, Denies nausea and Denies vomiting Denies urinary incontinence, Denies urinary hesitancy and Denies urinary urgency Neuro Denies behavioral changes and Denies lack of coordination Psych Denies behavioral changes Physical exam (Primary Care) Vital Signs: Last Vital Signs BP 158/90 H 10/05/24 08:37 BMI result Body Mass Index 25.6 Tobacco/Smoking Status: Tobacco use Status Tobacco use date assessed 10/05/24 10/05/24 08:41 Patient Tobacco Use Status Never used Tobacco 10/05/24 08:37 e-Cigarette/Vaping Use Never Used 10/05/24 08:37 PHQ-9: PHQ-9 Score PHQ-9: Total score 0 10/05/24 08:41 Depression Screening Interpretation: Negative Thrive Assessment: Date of Thrive Assessment Date Thrive assessed 10/05/24 10/05/24 08:41 Currently or been in a relationship where the following occur: No concerns reported [facility] Head: Yes normal to inspection, Yes normocephalic and Yes atraumatic Ears: external ears normal Eyes General: appearance normal, both eyes and all related structures Eyelids: Yes eyelids normal Conjunctivae: conjunctivae normal Neck Neck: Yes normal visual inspection and Yes supple Resp Effort & Inspection: normal respiratory effort Auscultation: clear to auscultation bilaterally Cardio Jugular venous distension: no JVD Rate: regular rate Rhythm: regular rhythm Heart sounds: S1 normal heart sound present and S2 normal heart sound present GI Inspection: Yes normal to inspection Palpation (GI): Soft to palpation and nontender Auscultation: normal bowel sounds Skin General skin exam: no rashes or lesions noted Neuro General: no focal motor deficits Extrem General: Yes full ROM Psych Appearance: grossly normal Office Procedures Flu Questionnaire Does the patient have a severe egg allergy?: No Immunizations Fluarix Triv [id number] (PF) 45 mcg (15 mcg x 3)/0.5 mL IM syringe Performing Provider: Adamaris Centeno MD [place] Documented (not given) by: MADISON Lozada on 10/05/24 08:37 Reason Not Given: Received Previously Coding Level of Care Code Est Pt Prev Care 40-64y(84752) Diagnoses Physical exam Z00.00 Additional Codes PHQ-9 - 78197 - PHQ-9 Billing: Yes ([id number]) CHRISTINA-7 Assessment Billing - CHRISTINA-7 Assessment Tool: CHRISTINA-7 Assessment 29488 ([id number]) Time Spent (min) 30 Assessment & Plan Assessment & Plan (1) Physical exam: Code(s): Z00.00 - Encounter for general adult medical examination without abnormal findings Category: Medical Plan - Continue anti-hypertensive medication Losartan) and monitor blood pressure with a recheck scheduled for three weeks - Conduct routine blood work including tests for cholesterol, glucose, kidney, and liver function to assess overall health - Encourage weight management through dietary modifications and increased physical activity, particularly with reengagement in walking - Reinforce ongoing health maintenance including regular screening and vaccinations as documented Patient was informed and verbally consented to the use of an ambient scribe for clinic note documentation during this visit. During the visit, I discussed with the patient the importance of maintaining blood pressure control and the need for monitoring despite her current medication regimen. This includes repeated checks to assess treatment effectiveness. In light of her recent weight gain, I advised that achieving and maintaining a healthy weight could positively influence her blood pressure and overall health. I provided guidance on dietary habits and suggested intermittent fasting as one approach, along with portion control, particularly emphasizing protein and vegetable intake. The patient expressed understanding and a willingness to adjust her lifestyle accordingly. She was informed that her BMI is currently in the overweight range and acknowledged her goal to return to her previous weight. Plans for continued monitoring of health markers via routine blood work were also outlined, ensuring overall health status is kept in check. Orders: Orders Comprehensive [place]. Panel Fast Today Z00.00 - Encounter for general adult medical examination without abnormal findings Influenza [id number] Immunization Today Z23 - Encounter for immunization Lipid Panel Today Z00.00 - Encounter for general adult medical examination without abnormal findings Patient Instructions: - Continue taking Losartan as prescribed - Return in three weeks for a blood pressure check - Undergo scheduled blood work for cholesterol, glucose, kidney, and liver function tests - Engage in regular physical activity, focusing on walking when possible - Consider dietary changes including controlled meal timing and portion sizes - Maintain routine health screenings as scheduled
== END 2024-10-05 09:17 | disposition home or self-care (01) ==
PROVIDERS: PCP Internal Medicine; Visit Provider Internal Medicine
DX: Z23 Encounter for immunization (principal); Z00.00 Encounter for general adult medical examination without abnormal findings

== ENCOUNTER → 2024-10-05 08:26 | Outpatient (BNVA) | payer BC, SELFPAY | PROVIDERS: PCP Internal Medicine; Visit Provider Internal Medicine | DX: Z00.00 Encounter for general adult medical examination without abnormal findings (principal); R03.0 Elevated blood-pressure reading, without diagnosis of hypertension; Z79.899 Other long term (current) drug therapy | CPT/HCPCS: 90471; 96127 ==

== ENCOUNTER → 2024-11-11 07:56 | Outpatient (BNVA) | payer BC, SELFPAY | PROVIDERS: PCP Internal Medicine ==

== ENCOUNTER 2025-01-14 20:10 | Observation (INO) | payer BC, SELFPAY ==
--- NOTE | ~2025-01-14 | US_ITS ---
CLINICAL HISTORY: post-prandial upper abdominal pain US abdomen limited Comparison: None Findings: The visualized pancreas is unremarkable. Liver is mildly increased in echogenicity consistent with mild hepatic steatosis. No focal hepatic lesion is seen. There is no bile duct dilation. Common duct measures 4 mm in diameter. Gallbladder appears normal. There is no sonographic Marroquin sign. Right kidney appears normal. The right kidney measures 10 cm in length. No free fluid is seen. IMPRESSION: 1. No acute findings. 2. Mild hepatic steatosis. This document has been electronically signed by: Jose Juan Calix MD on 01/14/2025 23:05:41
--- NOTE | ~2025-01-14 | CT_ITS ---
CLINICAL HISTORY: HTN urgency CT head without IV contrast Comparison: None Findings: The ventricles are normal in configuration. Basilar cisterns intact. No intracranial hemorrhage, mass-effect or midline shift. No extra-axial fluid collections. The parenchyma is unremarkable in attenuation. [place]-white matter junction preserved. No evidence of acute large vessel or territorial ischemia. Brainstem and cerebellum unremarkable. The calvarium is intact. The imaged portion of the paranasal sinuses are clear. No mastoid effusions. Left lateral orbital wall fracture of indeterminate age. No associated soft tissue swelling.. Ununited left zygomatic arch fracture of indeterminate age Impression: 1. No CT evidence of acute intracranial pathology. A probable remote left zygomatic arch fracture correlate clinically. Left lateral orbital wall fracture of indeterminate age no associated soft tissue swelling. These findings may be from remote trauma This document has been electronically signed by: Dez Leroy MD on 01/15/2025 08:54:15
[2025-01-14 20:13] VITALS: BP 203/100; PULSE 116; RESP 20; TEMP 36.5; O2SAT 96; BMI 26.4
--- NOTE | 2025-01-14 20:13 | ED_ITS ---
HPI - General Adult General Chief complaint: General Medical Stated complaint: high bp Time Seen by Provider: 01/14/25 21:23 History of Present Illness ED Provider: Jay ARMANDO narrative: The patient is a 59-year-old female with a history of hypertension. She takes 50 mg of losartan daily. She describes herself as otherwise healthy and on no other medications. She says that over the last 3 days she has had a sense of vague discomfort in her epigastrium and a vague sense of abdominal bloating. She has had no vomiting or diarrhea. She has had no fever, sweats, chills. She has had no chest pain or shortness of breath. She says that she works at the [employer] during the week. She had today off. She says that earlier in the day she has been doing a lot of housework. She ate dinner this evening an after dinner she felt worsening upper abdominal discomfort and nausea. She checked her blood pressure and apparently had a systolic blood pressure in the 240s. She was concerned and drove herself to the hospital. No fever, sweats, chills. No headache. Related Data Previous Rx's ?Medication ?Instructions ?Recorded blood pressure monitor #1 ea 04/25/22 losartan 50 mg tablet 50 mg PO DAILY 90 days #90 tabs 11/11/24 Allergies Allergy/AdvReac Type Severity Reaction Status Date / Time No Known Allergies Allergy Verified 01/14/25 20:15 Review of Systems 2 Review of Systems: Yes all other systems are reviewed and are negative PMFSH Past Medical History Medical History Essential hypertension Overweight Surgical History Hx of breast implants, bilateral Family History Family History Unknown Adopted Social History Social History Housing: House Alcohol intake: current Alcohol intake frequency: a few times a week Alcohol type: wine Patient Tobacco Use Status: Never used Tobacco Smoked in Last 30 Days: No e-Cigarette/Vaping Use: Never Used Second Hand Smoke Exposure: No Use of substances other than those prescribed or required for medical reasons: No Advance Directives: No Advance Directives Information Provided: No Do you have a plan to hurt others: No Plan Nutrition Risks: No Nutritional Risk Patient : No service: No Current occupational status: employed Current occupational exposures/hazards: No Gender identity: Female Cognitive needs: No Hearing needs: No Vision needs: Yes Physical Exam ED Vital Signs: Vital Signs - 24 hr 01/14/25 20:13 01/14/25 22:00 01/14/25 22:05 Temperature 97.7 F 97.9 F Pulse Rate 116 H 96 Respiratory Rate 20 18 Blood Pressure 203/100 H 163/79 H 163/79 H Pulse Oximetry 96 97 Oxygen Delivery Method Room Air Room Air 01/15/25 00:04 Temperature 98.3 F Pulse Rate 85 Respiratory Rate 15 Blood Pressure 114/67 Pulse Oximetry 93 Oxygen Delivery Method Room Air BMI result Body Mass Index 26.4 Const Other: The patient is a 59-year-old woman who was awake and alert and does not appear in obvious distress. She does not seem short of breath or in pain. She has a mildly anxious demeanor. Orientation/consciousness: patient oriented x3 HENMT Other: Face is symmetrical, mucous membranes moist. Eyes General: appearance normal, both eyes and all related structures Neck Neck: Yes normal visual inspection, Yes full ROM and Yes no JVD Resp Effort & Inspection: normal respiratory effort Auscultation: clear to auscultation bilaterally Cardio Rate: regular rate Rhythm: regular rhythm Heart sounds: S1 normal heart sound present and S2 normal heart sound present GI Other: The abdomen is soft. No definite upper abdominal tenderness or tenderness elsewhere. Abdomen seems benign. Skin Other: Skin is dry and unremarkable Neuro General: patient oriented x3, tone normal, moves all extremities, no focal motor deficits and CN's II-XI intact bilaterally Extrem Other: No calf swelling or tenderness, no asymmetry, no edema Course Course Course Narrative: RME, this is a rapid medical exam performed by Terry Glynn please refer to primary provider for complete H&P- 59 year old female presents for evaluation of high blood pressure. She reports that she has been feeling off for the last 2 days and she took her blood pressure today and it was 243/140. She is treated for hypertension and reports being compliant with her meds. She endorses some upper abdominal pain. Plan for ekg and labs Medications Administered Discontinued Medications Generic Name Dose Route Start Last Admin Trade Name Aroldo PRN Reason Stop Dose Admin Al Hydroxide/Mg Hydroxide 30 ml 01/14/25 21:33 01/14/25 22:01 Magnesium Hydrox/Alum Hydrox 30 Ml Oral.Susp PO 01/14/25 21:34 30 ml ONCE ONE Administration Aspirin 324 mg 01/15/25 01:47 01/15/25 02:02 Aspirin 81 Mg Tab.Chew PO 01/15/25 01:48 324 mg ONCE ONE Administration Clonidine HCl 0.1 mg 01/14/25 21:33 01/14/25 22:00 Clonidine Hcl 0.1 Mg Tablet PO 01/14/25 21:34 0.1 mg ONCE ONE Administration Protocol Metoprolol Tartrate 5 mg 01/15/25 01:47 01/15/25 02:47 Metoprolol Tartrate 5 Mg/5 Ml Vial IVPUSH 01/15/25 01:48 Not Given ONCE ONE Protocol Ondansetron HCl 4 mg 01/15/25 02:08 01/15/25 02:26 Ondansetron Hcl 4 Mg/2 Ml Vial IVPUSH 01/15/25 02:09 4 mg ONCE ONE Administration Medical Decision Making Medical Decision Making [facility] Narrative: The patient is a 59-year-old woman with a history of hypertension who had vague feelings of feeling unwell with primarily abdominal symptoms. She checked her blood pressure which was elevated at home and drove herself to the emergency room. She denies chest pain or shortness of breath. She was hypertensive and tachycardic when she arrived but did not look unwell. EKG shows nonspecific changes similar to previous EKGs. An initial troponin was undetectable. The patient was given an empiric dose of 0.1 mg clonidine for her initial hypertension and tachycardia. She was observed and seemed to feel better. Her initial troponin was undetectable but a 2nd troponin came back at 12. Twelve is normal but considerably higher than the initial troponin. I therefore felt obligated to check a 3rd troponin. I also decided to check a D-dimer because of her tachycardia. Her D-dimer was normal. Another EKG continued to show nonspecific changes. A 3rd troponin came back elevated at 35. The patient had felt considerably better after the dose of clonidine. Her heart rate and blood pressure had normalized. At around the same time that her troponin came back positive she once again felt that something was wrong although her description of the symptoms was very nonspecific. She felt her heart racing and she felt somewhat dizzy. No definite chest pain or shortness of breath. Given that her troponins were rising she was given a dose of aspirin. The overall syndrome does not seem like an obvious or typical NSTEMI. She was given a dose of aspirin. I had ordered a dose of 5 mg of metoprolol because her heart rate and blood pressure had gone up again but these improved prior to administration of metoprolol. The patient will be admitted to the hospitalist service. Lab Data 01/14/25 20:38 01/14/25 21:08 Labs: Lab Results 01/14/25 01/14/25 01/14/25 Range/Units 20:38 21:08 22:15 WBC 7.7 (4.8-10.8) X10*3/uL RBC 4.01 L (4.20-5.50) X10*6/uL Hgb 12.6 (12.0-16.0) g/dl Hct 37.1 (37.0-47.0) % MCV 92.5 (80.0-98.0) fL MCH 31.4 (27.0-33.0) pg MCHC 34.0 (31.0-35.0) g/dl RDW 12.1 (11.0-16.0) % Plt Count 262 (160-400) X10*3/uL MPV 10.0 (9.4-12.3) fL Immature Gran % (Auto) 0.4 (0.0-0.4) % Neut % (Auto) 59.8 (45-73) % Lymph % (Auto) 29.9 (20-40) % [place] % (Auto) 8.9 (2-11) % Eos % (Auto) 0.5 (0-4) % Baso % (Auto) 0.5 (0-2) % Lymph # (Auto) 2.3 (1.2-4.9) X10*3/uL [place] # (Auto) 0.7 (0.1-1.2) X10*3/uL Eos # (Auto) 0.0 (0.0-0.4) X10*3/uL Baso # (Auto) 0.0 (0.0-0.2) X10*3/uL Abs Immat Gran (auto) 0.03 (0.00-0.03) X10*3/uL Absolute Neuts (auto) 4.6 (2.0-8.3) x10*3/uL Absolute Nucleated RBC 0.000 (0.0-0.012) X10*3/uL Nucleated RBC % (auto) 0.0 (0.0-0.2) /100WBC PT 10.6 L (10.9-12.4) SEC INR 0.9 (0.9-1.1) D-Dimer High Sensitivty < 150 NG/ML Sodium 133 L (135-145) mmol/L Potassium 3.7 (3.3-5.1) mmol/L Chloride 102 (96-108) mmol/L Carbon Dioxide 19 L (22-29) mmol/L Anion Gap 16 (12-20) BUN 10 (9-16) mg/dL Creatinine 0.70 (0.5-1.4) mg/dL Estim Creat Clear Calc 83.9 Estimated GFR > 60 Random Glucose 126 H (60-115) mg/dL Calcium 9.0 (8.4-10.2) mg/dL Total Bilirubin 0.4 (0.0-1.0) mg/dL AST 34 H (5-31) U/L ALT 24 (0-31) U/L Alkaline Phosphatase 69 (39-117) U/L Troponin I High Sens < 2.7 12.4 D (<3.5-17.0) ng/L Total Protein 7.2 (6.5-8.0) g/dL Albumin 4.2 (3.5-5.0) g/dL Lipase 13 (8-78) U/L Urine Color Urine Appearance Urine pH (5.0-9.0) Ur Specific [place] (1.005-1.025) Urine Protein (Neg-Trace) mg/dL Urine Glucose (UA) (Negative) mg/dL Urine Ketones (Negative) mg/dL Urine Blood (Negative) Urine Nitrite (Negative) Ur Leukocyte Esterase (Negative) Urine RBC (0-2) /HPF Urine WBC (0-5) /HPF Ur Squamous Epith Cells (0-2) /HPF Urine Bacteria (None Seen) Hyaline Casts (0-2) /LPF 01/14/25 01/15/25 Range/Units 22:18 00:40 WBC (4.8-10.8) X10*3/uL RBC (4.20-5.50) X10*6/uL Hgb (12.0-16.0) g/dl Hct (37.0-47.0) % MCV (80.0-98.0) fL MCH (27.0-33.0) pg MCHC (31.0-35.0) g/dl RDW (11.0-16.0) % Plt Count (160-400) X10*3/uL MPV (9.4-12.3) fL Immature Gran % (Auto) (0.0-0.4) % Neut % (Auto) (45-73) % Lymph % (Auto) (20-40) % [place] % (Auto) (2-11) % Eos % (Auto) (0-4) % Baso % (Auto) (0-2) % Lymph # (Auto) (1.2-4.9) X10*3/uL [place] # (Auto) (0.1-1.2) X10*3/uL Eos # (Auto) (0.0-0.4) X10*3/uL Baso # (Auto) (0.0-0.2) X10*3/uL Abs Immat Gran (auto) (0.00-0.03) X10*3/uL Absolute Neuts (auto) (2.0-8.3) x10*3/uL Absolute Nucleated RBC (0.0-0.012) X10*3/uL Nucleated RBC % (auto) (0.0-0.2) /100WBC PT (10.9-12.4) SEC INR (0.9-1.1) D-Dimer High Sensitivty NG/ML Sodium (135-145) mmol/L Potassium (3.3-5.1) mmol/L Chloride (96-108) mmol/L Carbon Dioxide (22-29) mmol/L Anion Gap (12-20) BUN (9-16) mg/dL Creatinine (0.5-1.4) mg/dL Estim Creat Clear Calc Estimated GFR Random Glucose (60-115) mg/dL Calcium (8.4-10.2) mg/dL Total Bilirubin (0.0-1.0) mg/dL AST (5-31) U/L ALT (0-31) U/L Alkaline Phosphatase (39-117) U/L Troponin I High Sens 35.3 H D (<3.5-17.0) ng/L Total Protein (6.5-8.0) g/dL Albumin (3.5-5.0) g/dL Lipase (8-78) U/L Urine Color Yellow Urine Appearance Clear Urine pH 6.5 (5.0-9.0) Ur Specific [place] <= 1.005 (1.005-1.025) Urine Protein Negative (Neg-Trace) mg/dL Urine Glucose (UA) Negative (Negative) mg/dL Urine Ketones 15 (Negative) mg/dL Urine Blood Negative (Negative) Urine Nitrite Negative (Negative) Ur Leukocyte Esterase Trace H (Negative) Urine RBC 0-2 (0-2) /HPF Urine WBC 0-5 (0-5) /HPF Ur Squamous Epith Cells 0-2 (0-2) /HPF Urine Bacteria None Seen (None Seen) Hyaline Casts 0-2 (0-2) /LPF Critical Care Time Critical Care Time Critical Care Time: Yes Total Critical Care Time: 35 Attestation: The patient was critically ill with a high probability of imminent or life- threatening deterioration. ?I spent greater than 30 minutes of discontinuous time evaluating the patient, delivering critical care at the bedside, discussing evaluating data with consultants. ?Critical care time does not include time spent performing separately billable procedures or teaching. ?Time spent performing critical care with 35 minutes. Discharge Plan Discharge Clinical Impression: Elevated troponin, Hypertension, Tachycardia Patient Disposition: Admitted As Inpatient
--- NOTE | 2025-01-14 20:14 | ECG_ITS ---
Test Reason : HTN Blood Pressure : */* mmHG Vent. Rate : 101 BPM Atrial Rate : 101 BPM P-R Int : 184 ms QRS Dur : 88 ms QT Int : 332 ms P-R-T Axes : 55 51 35 degrees QTcB Int : 430 ms Sinus tachycardia Possible Left atrial enlargement Nonspecific ST and T wave abnormality Abnormal ECG When compared with ECG of 31-Mar-2022 10:36, NSTT more prominent Referred By: Mateo Glynn Electronically Signed By: SANDRA SCHMIDT
--- NOTE | 2025-01-14 20:27 | PC.NURSE ---
Moved to ED 25. EKG being obtained at this time. States that a few months ago Losartan dose was increased to 50mg, which she is compliant with. Labs & IV access to be obtained. BP elevated, placed on case monitor.
[2025-01-14 20:42] LABS: MANUAL DIFF FLAG NO
[2025-01-14 20:43] LABS: Basophils Percent Auto 0.5 % (0-2); Eosinophils Percent Auto 0.5 % (0-4); Hematocrit 37.1 % (37.0-47.0); Hemoglobin 12.6 g/dl (12.0-16.0); Imm Gran Abs Auto 0.03 X10*3/uL (0.00-0.03); Imm Gran Pct Auto 0.4 % (0.0-0.4); Lymphocytes Absolute Auto 2.3 X10*3/uL (1.2-4.9); Lymphocytes Percent Auto 29.9 % (20-40); Mean Corpuscular Hemoglobin 31.4 pg (27.0-33.0); Mean Corpuscular Volume 92.5 fL (80.0-98.0); Monocytes Absolute Auto 0.7 X10*3/uL (0.1-1.2); Monocytes Percent Auto 8.9 % (2-11); Neutrophils Absolute Auto 4.6 x10*3/uL (2.0-8.3); Neutrophils Percent Auto 59.8 % (45-73); Platelet Count 262 X10*3/uL (160-400); Red Blood Count 4.01 X10*6/uL (4.20-5.50); Red Cell Distribution Width 12.1 % (11.0-16.0); White Blood Count 7.7 X10*3/uL (4.8-10.8)
[2025-01-14 21:05] LABS: Troponin-I High Sensitivity < 2.7 ng/L (<3.5-17.0)
[2025-01-14 21:31] LABS: Alanine Aminotransferase 24 U/L (0-31); Albumin Level 4.2 g/dL (3.5-5.0); Alkaline Phosphatase 69 U/L (39-117); Anion Gap 16 (12-20); Aspartate Amino Transferase 34 U/L (5-31); Bilirubin Total 0.4 mg/dL (0.0-1.0); Blood Urea Nitrogen 10 mg/dL (9-16); Carbon Dioxide 19 mmol/L (22-29); Chloride 102 mmol/L (96-108); Creatinine Clr Calc Pharmacy 83.9; Estimated Glomerular Filt Rate > 60; Glucose Random 126 mg/dL (60-115); Lipase 13 U/L (8-78); Potassium 3.7 mmol/L (3.3-5.1); Sodium 133 mmol/L (135-145); Total Protein 7.2 g/dL (6.5-8.0)
[2025-01-14 22:00] VITALS: BP 163/79
[2025-01-14] MEDS: cloNIDine HCL 0.1 MG TABLET PO (22:00)
[2025-01-14] MEDS: Magnesium Hydrox/Alum Hydrox 30 ML ORAL.SUSP PO (22:01)
[2025-01-14 22:05] VITALS: BP 163/79; PULSE 96; RESP 18; TEMP 36.6; O2SAT 97
[2025-01-14 22:26] LABS: Appearance Urine Clear; Color Urine Yellow; Glucose Urine UA Negative (Negative); Leukocyte Esterase Urine Trace (Negative); Nitrite Urine Negative (Negative); PH 6.5 (5.0-9.0); Specific Gravity - Urine <= 1.005 (1.005-1.025); UMIC TRIGGER UACC YES; Urine Blood Negative (Negative); Urine Ketones 15 mg/dL (Negative); Urine Protein Negative (Neg-Trace)
[2025-01-14 22:29] LABS: Bacteria Urine None Seen (None Seen); Hyaline Casts Urine 0-2 /LPF (0-2); RBC Urine 0-2 /HPF (0-2); Squamous Epithelial Cell Urine 0-2 /HPF (0-2); WBC Urine 0-5 /HPF (0-5)
[2025-01-14 22:37] LABS: INTERNATIONAL NORM RATIO 0.9 (0.9-1.1); Prothrombin Time 10.6 SEC (10.9-12.4)
[2025-01-14 22:43] LABS: Troponin-I High Sensitivity 12.4 ng/L (<3.5-17.0)
--- NOTE | 2025-01-14 22:48 | ECG_ITS ---
Test Reason : HIGH BLOOD PRESSURE Blood Pressure : */* mmHG Vent. Rate : 89 BPM Atrial Rate : 89 BPM P-R Int : 162 ms QRS Dur : 90 ms QT Int : 388 ms P-R-T Axes : 55 24 42 degrees QTcB Int : 472 ms Normal sinus rhythm Nonspecific ST and T wave abnormality Abnormal ECG When compared with ECG of 14-Jan-2025 20:24, No significant change was found Referred By: Isai Thompson Electronically Signed By: SANDRA SCHMIDT
[2025-01-14 22:55] LABS: D Dimer High Sensitivity < 150 NG/ML
[2025-01-15] VITALS (8 sets, daily range): BP systolic 114–145; BP diastolic 64–82; PULSE 61–89; RESP 13–16; TEMP 36.4–37.1; O2SAT 93–99
[2025-01-15 01:04] LABS: Troponin-I High Sensitivity 35.3 ng/L (<3.5-17.0)
[2025-01-15] MEDS: Aspirin 81 MG TAB.CHEW 324 MG PO (02:02)
--- NOTE | 2025-01-15 02:02 | P.HPHOSP_ITS ---
History of Present Illness Date of Service: 01/15/25 Chief Complaint: abd pain 59-year-old female with a past medical history of hypertension presented to the hospital with a chief complaint of not feeling well. Patient reports that the past couple days she has been not feeling well. Also has had abdominal bloating. Denies any nausea or vomiting. Denies any chest pain or palpitations. Denies any headaches or blurry visions. Denies any numbness tingling or focal weakness. Denies any GI symptoms. Patient reported that she has history of high blood pressure. Has been taking losartan which was recently increased in dose. Mentions he has been compliant with her home losartan. When she checks her blood pressure at home the systolic was in 2 4th 2 days. Hence presented to the ER for further evaluation. Review of all the other systems is negative except mentioned above Per ER team, patient on presentation appears to have nonfocal exam. Blood pressure was in 200s systolic. Given clonidine. Blood pressure improved to 130s systolic. CT abdomen pelvis was done which showed no acute findings. Patient's troponin slightly elevated. EKG nonischemic. [facility] Medical History Essential hypertension Overweight Family History Unknown Adopted Surgical History Hx of breast implants, bilateral Social History Housing: House Alcohol intake: current Alcohol intake frequency: a few times a week Alcohol type: wine Patient Tobacco Use Status: Never used Tobacco e-Cigarette/Vaping Use: Never Used Second Hand Smoke Exposure: No service: No Current occupational status: employed Current occupational exposures/hazards: No Gender identity: Female Cognitive needs: No Hearing needs: No Vision needs: Yes Meds Allergies Allergy/AdvReac Type Severity Reaction Status Date / Time No Known Allergies Allergy Verified 01/14/25 20:15 Physical Exam 2 Vital Signs and Narrative: Vital Signs: Last Vital Signs Temp 98.3 F 01/15/25 00:04 Pulse 85 01/15/25 00:04 Resp 15 01/15/25 00:04 BP 114/67 01/15/25 00:04 Pulse Ox 93 01/15/25 00:04 O2 Del Method Room Air 01/15/25 00:04 BMI result Body Mass Index 26.4 Gen: Appears be in no acute distress HEENT: NCAT, Moist mucosa. Pulmonary: Vesicular breath sounds, fair air entry CVS: Normal S1-S2 Abdomen: BS+, Soft, Nontender Extremities: Warm well perfused Neuro: Alert and awake. Results Labs 01/14/25 20:38 01/14/25 21:08 Labs: Laboratory Results - last 24 hr 01/14/25 01/14/25 01/14/25 20:38 21:08 22:15 MCV 92.5 MCH 31.4 MCHC 34.0 RDW 12.1 Plt Count 262 MPV 10.0 Immature Gran % (Auto) 0.4 Neut % (Auto) 59.8 Lymph % (Auto) 29.9 [place] % (Auto) 8.9 Eos % (Auto) 0.5 Baso % (Auto) 0.5 Lymph # (Auto) 2.3 [place] # (Auto) 0.7 Eos # (Auto) 0.0 Baso # (Auto) 0.0 Abs Immat Gran (auto) 0.03 Absolute Neuts (auto) 4.6 Absolute Nucleated RBC 0.000 Nucleated RBC % (auto) 0.0 PT 10.6 L INR 0.9 D-Dimer High Sensitivty < 150 Anion Gap 16 Estim Creat Clear Calc 83.9 Estimated GFR > 60 Random Glucose 126 H Calcium 9.0 Total Bilirubin 0.4 AST 34 H ALT 24 Alkaline Phosphatase 69 Total Protein 7.2 Albumin 4.2 Lipase 13 Urine Color Urine Appearance Urine pH Ur Specific [place] Urine Protein Urine Glucose (UA) Urine Ketones Urine Blood Urine Nitrite Ur Leukocyte Esterase Urine RBC Urine WBC Ur Squamous Epith Cells Urine Bacteria Hyaline Casts 01/14/25 22:18 MCV MCH MCHC RDW Plt Count MPV Immature Gran % (Auto) Neut % (Auto) Lymph % (Auto) [place] % (Auto) Eos % (Auto) Baso % (Auto) Lymph # (Auto) [place] # (Auto) Eos # (Auto) Baso # (Auto) Abs Immat Gran (auto) Absolute Neuts (auto) Absolute Nucleated RBC Nucleated RBC % (auto) PT INR D-Dimer High Sensitivty Anion Gap Estim Creat Clear Calc Estimated GFR Random Glucose Calcium Total Bilirubin AST ALT Alkaline Phosphatase Total Protein Albumin Lipase Urine Color Yellow Urine Appearance Clear Urine pH 6.5 Ur Specific [place] <= 1.005 Urine Protein Negative Urine Glucose (UA) Negative Urine Ketones 15 Urine Blood Negative Urine Nitrite Negative Ur Leukocyte Esterase Trace H Urine RBC 0-2 Urine WBC 0-5 Ur Squamous Epith Cells 0-2 Urine Bacteria None Seen Hyaline Casts 0-2 Assessment and Plan (1) Hypertension: Qualifiers: Hypertension type: unspecified Qualified Code(s): I10 - Essential (primary) hypertension Status: Acute Plan 59-year-old female with a past medical history of hypertension presented to the hospital with a chief complaint of not feeling well. Noted to be in hypertensive urgency. Admitted for further management. Hypertensive urgency: Patient's systolic blood pressure was as high as 240s prior to coming. Systolic blood pressure was in 200s on presentation to the ER. Received clonidine. Blood pressure improved to [address] head pending Start the patient on metoprolol 25 mg b.i.d. Elevated troponins: Initial troponin was less than 2.7.--12.4--35.3. Patient denied any chest pain. EKG nonischemic. D-dimer negative. Likely demand Echocardiogram Cardiology consult Of note: Patient after woke up in the morning reported lip swelling. Exam was benign. Given Benadryl. Will monitor DVT prophylaxis: Lovenox Code status: Full code Quality Stroke Does the patient have a stroke diagnosis?: No VTE Prior VTE?: No VTE Risk Level:: Medical - moderate - high VTE Device Contraindication: Treatment Not Indicated VTE Drug Contraindication: N/A - Med Ordered
--- NOTE | 2025-01-15 02:06 | ECG_ITS ---
Test Reason : REPEAT Blood Pressure : */* mmHG Vent. Rate : 93 BPM Atrial Rate : 93 BPM P-R Int : 158 ms QRS Dur : 84 ms QT Int : 374 ms P-R-T Axes : 62 44 53 degrees QTcB Int : 465 ms Normal sinus rhythm Nonspecific ST and T wave abnormality Abnormal ECG When compared with ECG of 14-Jan-2025 22:58, No significant change was found Referred By: Isai Thompson Electronically Signed By: SANDRA SCHMIDT
[2025-01-15] MEDS: ondansetron HCL 4 MG/2 ML VIAL IVPUSH (02:26)
--- NOTE | 2025-01-15 02:53 | PC.NURSE ---
IV metoprolol not given per MD Tor, BP decreased without medication
[2025-01-15] MEDS: diphenhydrAMINE HCL 25 MG CAPSULE PO (05:32)
--- NOTE | 2025-01-15 05:48 | PC.NURSE ---
pt woke up from resting comfortably, called this RN to bedside, reports her lips and cheeks feel swollen and swallowing felt different. airway is patent, VSS. ED provider and Hospitalist aware. pt medicated w/ PO Benadryl per NOV. pt walked to the bathroom with steady gait. states her face looks puffy in the mirror. neuros intact. swallowing water okay
--- NOTE | 2025-01-15 06:38 | PC.NURSE ---
admit note: pt presents to ED for 2 days of hypertension >200 systolic at home, and abd pain- CT abd negative . pt A/O x4, ambulates independently, calm and cooperative with care. 20g IV L wrist. VSS. pt woke up today in ED and reports her lips and face felt/looked swollen, Benadryl given, symptoms improved. head CT ordered. ADMIT: hypertension. troponins elevated in ED, cardiology consult, echo.
[2025-01-15 07:10] LABS: MANUAL DIFF FLAG NO
[2025-01-15 07:29] LABS: Basophils Percent Auto 0.5 % (0-2); Eosinophils Absolute Auto 0.1 X10*3/uL (0.0-0.4); Eosinophils Percent Auto 2.4 % (0-4); Estimated Average Glucose 120 mg/dL; Hematocrit 38.6 % (37.0-47.0); Hemoglobin 12.9 g/dl (12.0-16.0); Hemoglobin A1C 139.8546 umol/L; Hemoglobin A1c % 5.8 % (<6.0); Imm Gran Abs Auto 0.03 X10*3/uL (0.00-0.03); Imm Gran Pct Auto 0.5 % (0.0-0.4); Lymphocytes Absolute Auto 1.2 X10*3/uL (1.2-4.9); Lymphocytes Percent Auto 20.5 % (20-40); Mean Corpuscular HGB Conc 33.4 g/dl (31.0-35.0); Mean Corpuscular Hemoglobin 31.3 pg (27.0-33.0); Mean Corpuscular Volume 93.7 fL (80.0-98.0); Mean Platelet Volume 10.5 fL (9.4-12.3); Monocytes Absolute Auto 0.4 X10*3/uL (0.1-1.2); Monocytes Percent Auto 7.2 % (2-11); Neutrophils Percent Auto 68.9 % (45-73); Platelet Count 264 X10*3/uL (160-400); Red Blood Count 4.12 X10*6/uL (4.20-5.50); Red Cell Distribution Width 12.1 % (11.0-16.0); Total Hemoglobin (HGBA1C) 3510.8063 umol/L; White Blood Count 5.8 X10*3/uL (4.8-10.8)
[2025-01-15 07:45] LABS: Alanine Aminotransferase 23 U/L (0-31); Albumin Level 4.1 g/dL (3.5-5.0); Alkaline Phosphatase 64 U/L (39-117); Aspartate Amino Transferase 26 U/L (5-31); Bilirubin Total 0.6 mg/dL (0.0-1.0); Blood Urea Nitrogen 8 mg/dL (9-16); Calcium 9.1 mg/dL (8.4-10.2); Creatinine Clr Calc Pharmacy 87.6; Estimated Glomerular Filt Rate > 60; Glucose Random 124 mg/dL (60-115); Total Protein 6.7 g/dL (6.5-8.0)
[2025-01-15 08:17] LABS: Anion Gap 12 (12-20); Carbon Dioxide 26 mmol/L (22-29); Chloride 103 mmol/L (96-108); Potassium 4.2 mmol/L (3.3-5.1); Sodium 137 mmol/L (135-145); Thyroid Stimulating Hormone 1.11 uIU/mL (0.32-4.0)
--- NOTE | 2025-01-15 09:01 | PHA.MEDREC ---
Pharmacy Consult ? Medication Reconciliation Pharmacy has completed the medication reconciliation. Spoke with patient to confirm medications.
--- NOTE | 2025-01-15 09:56 | P.CONCA_ITS ---
History of Present Illness History of Present Illness Date of Service: 01/15/25 Chief complaint: htn urgency Narrative: This is a cardiology consultation regarding hypertensive urgency. Patient apparently has hypertension and she was on losartan. As the blood pressures were running high, apparently losartan dose was recently increased. However, blood pressure was still high not in good control. Prior to admission, blood pressure was going into the 200s and that led to the ER visit. She states that she was also having some abdominal bloating for the last 3-4 weeks or so. Unclear if that is got anything do the hypertensive urgency but in any case, blood pressure was very high and that led to the ER visit. Then it seems she got IV beta-blockers and she also got oral clonidine. In the blood pressures and she had normalized. Slight troponin leak most likely from high blood pressure itself. After all of this, she also noticed some swelling in the lips and changes in voice. Unclear what she was allergic to. Possible aspirin as she got 4 tablets of aspirin and she believes that might be the reason but again not definitive. Then she got Benadryl and feels good. No chest pain or any other cardiac symptoms. No history of any coronary disease. Review of Systems 2 Review of Systems: Yes all other systems are reviewed and are negative Constitutional: Constitutional: Reports as per HPI and Reports no additional constitutional complaints Eyes: Eyes: Reports as per HPI and Denies no additional eye complaints ENT: Denies system reviewed and no additional complaints, except as documented and Reports as per HPI Cardiovascular: Cardiovascular: Reports as per HPI, Reports no additional cardiovascular complaints, Denies acrocyanosis, Denies cool extremities, Denies chest pain, Denies leg edema, Denies lightheadedness, Denies palpitations and Denies dyspnea Respiratory: Respiratory: Reports as per HPI, Denies no additional respiratory complaints and Denies dyspnea Gastrointestinal: Gastrointestinal: Reports as per HPI and Denies no additional gastrointestinal complaints Genitourinary: Genitourinary: Reports as per HPI Musculoskeletal: Musculoskeletal: Reports no additional musculoskeletal complaints and Reports as per HPI Integumentary/Breasts: Skin/Breast: Reports system reviewed and no additional complaints, except as docu Neurologic: Reports system reviewed and no additional complaints, except as documented and Reports as per HPI Psychiatric: Psychiatric: Reports no additional psychiatric complaints and Reports as per HPI Endocrine: Endocrine: Reports no additional endocrine complaints, Reports as per HPI and Denies palpitations Hematologic/Lymphatic: Hematologic/Lymphatic: Reports no additional hematologic/lymphatic complaints and Reports as per HPI Allergic/Immunologic: Allergic/Immunologic: Reports no additional allergic/immunologic complaints and Reports as per HPI PMFSH Past Medical History Medical History Essential hypertension Overweight Family History Family History Unknown Adopted Surgical History Surgical History Hx of breast implants, bilateral Social History Social History Housing: House Alcohol intake: current Alcohol intake frequency: a few times a week Alcohol type: wine Patient Tobacco Use Status: Never used Tobacco Smoked in Last 30 Days: No e-Cigarette/Vaping Use: Never Used Second Hand Smoke Exposure: No Use of substances other than those prescribed or required for medical reasons: No Advance Directives: No Advance Directives Information Provided: No Do you have a plan to hurt others: No Plan Nutrition Risks: No Nutritional Risk Patient : No service: No Current occupational status: employed Current occupational exposures/hazards: No Gender identity: Female Cognitive needs: No Hearing needs: No Vision needs: Yes Meds Allergies Allergy/AdvReac Type Severity Reaction Status Date / Time No Known Allergies Allergy Verified 01/14/25 20:15 Active Medications: Current Medications Acetaminophen (Acetaminophen 325 Mg Tablet) 650 mg PO Q6H PRN PRN Reason: Pain, Mild 1-3,fever,headache Calcium Carbonate (Calcium Carbonate 750 Mg Tab.Chew) 750 mg PO Q4H PRN PRN Reason: Heartburn Magnesium Hydroxide (Milk Of Magnesia 30 Ml Oral.Susp) 30 ml PO DAILY PRN PRN Reason: Constipation Melatonin (Melatonin 3 Mg Tablet) 6 mg PO BEDTIME PRN PRN Reason: Insomnia Metoprolol Tartrate (Metoprolol Tartrate 25 Mg Tablet) 25 mg PO BID VIJI; Protocol Nitroglycerin (Nitroglycerin 0.4 Mg Tab.Subl) 0.4 mg SUBLINGUAL Q5MX3 PRN PRN Reason: Chest Pain Sodium Chloride (0.9 % Sodium Chloride Flush 3 Ml Syringe) 3 ml IVFLUSH QSHIFT [facility] Home Medications ?Medication ?Instructions ?Recorded ?Confirmed ?Last Taken ?Type cholecalciferol (vitamin D3) 25 25 mcg PO DAILY 01/15/25 01/15/25 Unknown History mcg (1,000 unit) tablet (Vitamin D3) cyanocobalamin (vitamin B-12) 500 500 mcg PO DAILY 01/15/25 01/15/25 Unknown History mcg tablet multivitamin 1 tab PO DAILY 01/15/25 01/15/25 Unknown History Physical Exam 2 Vital Signs: Vital Signs: Last Vital Signs Temp 98.1 F 01/15/25 06:36 Pulse 83 01/15/25 06:36 Resp 16 01/15/25 06:36 BP 145/73 H 01/15/25 06:36 Pulse Ox 96 01/15/25 06:36 O2 Del Method Room Air 01/15/25 06:36 BMI result Body Mass Index 26.4 Const: General: comfortable and no acute distress O rientation/consciousness: patient oriented x3 HEENT: Other: Unremarkable Head: Yes normal to inspection Neck: Neck: Yes normal visual inspection Chest: Chest palpation & inspection: normal inspection of the chest Resp: Auscultation: clear to auscultation bilaterally Cardio: Palpation: normal PMI Heart sounds: S1 normal heart sound present, S2 normal heart sound present, no gallops, no murmurs and no rubs GI: Palpation (GI): Soft to palpation Back/Spine/Pelvis: Other: unremarkable Skin: General skin exam: no rashes or lesions noted Neuro: General: patient oriented x3 Extrem: General: Yes normal to inspection Psych: Mental Status: mental status grossly normal Objective Labs and Meds 01/15/25 06:31 01/15/25 06:31 Lab results: Laboratory Results - last 24 hr 01/14/25 01/14/25 01/14/25 20:38 21:08 22:15 WBC 7.7 RBC 4.01 L Hgb 12.6 Hct 37.1 MCV 92.5 MCH 31.4 MCHC 34.0 RDW 12.1 Plt Count 262 MPV 10.0 Immature Gran % (Auto) 0.4 Neut % (Auto) 59.8 Lymph % (Auto) 29.9 [place] % (Auto) 8.9 Eos % (Auto) 0.5 Baso % (Auto) 0.5 Lymph # (Auto) 2.3 [place] # (Auto) 0.7 Eos # (Auto) 0.0 Baso # (Auto) 0.0 Abs Immat Gran (auto) 0.03 Absolute Neuts (auto) 4.6 Absolute Nucleated RBC 0.000 Nucleated RBC % (auto) 0.0 PT 10.6 L INR 0.9 D-Dimer High Sensitivty < 150 Sodium 133 L Potassium 3.7 Chloride 102 Carbon Dioxide 19 L Anion Gap 16 BUN 10 Creatinine 0.70 Estim Creat Clear Calc 83.9 Estimated GFR > 60 Random Glucose 126 H Estimat Average Glucose Hemoglobin A1c % Calcium 9.0 Total Bilirubin 0.4 AST 34 H ALT 24 Alkaline Phosphatase 69 Troponin I High Sens < 2.7 12.4 D Total Protein 7.2 Albumin 4.2 Lipase 13 TSH Urine Color Urine Appearance Urine pH Ur Specific [place] Urine Protein Urine Glucose (UA) Urine Ketones Urine Blood Urine Nitrite Ur Leukocyte Esterase Urine RBC Urine WBC Ur Squamous Epith Cells Urine Bacteria Hyaline Casts 01/14/25 01/15/25 01/15/25 22:18 00:40 06:31 WBC 5.8 RBC 4.12 L Hgb 12.9 Hct 38.6 MCV 93.7 MCH 31.3 MCHC 33.4 RDW 12.1 Plt Count 264 MPV 10.5 Immature Gran % (Auto) 0.5 H Neut % (Auto) 68.9 Lymph % (Auto) 20.5 [place] % (Auto) 7.2 Eos % (Auto) 2.4 Baso % (Auto) 0.5 Lymph # (Auto) 1.2 [place] # (Auto) 0.4 Eos # (Auto) 0.1 Baso # (Auto) 0.0 Abs Immat Gran (auto) 0.03 Absolute Neuts (auto) 4.0 Absolute Nucleated RBC 0.000 Nucleated RBC % (auto) 0.0 PT INR D-Dimer High Sensitivty Sodium 137 Potassium 4.2 Chloride 103 Carbon Dioxide 26 Anion Gap 12 BUN 8 L Creatinine 0.67 Estim Creat Clear Calc 87.6 Estimated GFR > 60 Random Glucose 124 H Estimat Average Glucose 120 Hemoglobin A1c % 5.8 Calcium 9.1 Total Bilirubin 0.6 AST 26 ALT 23 Alkaline Phosphatase 64 Troponin I High Sens 35.3 H D Total Protein 6.7 Albumin 4.1 Lipase TSH 1.11 Urine Color Yellow Urine Appearance Clear Urine pH 6.5 Ur Specific [place] <= 1.005 Urine Protein Negative Urine Glucose (UA) Negative Urine Ketones 15 Urine Blood Negative Urine Nitrite Negative Ur Leukocyte Esterase Trace H Urine RBC 0-2 Urine WBC 0-5 Ur Squamous Epith Cells 0-2 Urine Bacteria None Seen Hyaline Casts 0-2 ECG Interpretation: EKG shows sinus rhythm; possible left atrial enlargement; ventricular rate 101/Min; inferior and anterior slight ST depression. Upsloping. In the repeat EKG, seems improved. In the most recent EKG, again slightly seen. Assessment and Plan (1) Hypertensive urgency: Status: Acute (2) Elevated troponin: Status: Acute (3) Allergic reaction: Status: Acute Plan Blood pressure was as much as 203/100 mm Hg in the ER. Currently, much improved but once again going up in the last reading. Home dose of losartan was 50 mg daily. We can increase it to 100 mg daily. Add amlodipine 5 mg daily. Hold off beta-blockers. Slight troponin leak most likely from hypertensive urgency and demand. She has no chest pain. Slight EKG changes are also most likely related to acute LV strain. We can pursue ischemic workup as an outpatient. Possibly coronary CTA. With regard to lip swelling, could be related to allergic reaction from medication. Probably aspirin. Less likely others. That seems resolved now. We will arrange follow up in clinic. Procedures Date of Service Date of Service: 01/15/25
[2025-01-15] MEDS: 0.9 % Sodium Chloride Flush 3 ML SYRINGE IVFLUSH (10:06)
[2025-01-15] MEDS: Metoprolol Tartrate 25 MG TABLET PO (10:06)
--- NOTE | 2025-01-15 11:17 | PM.DS ---
DS: Providers Provider Date of Service: 01/15/25 Date of admission: 01/15/25 01:59 Date of discharge: 01/15/25 Primary care physician: Adamaris Centeno MD Consults: 01/15/25 01:59 Consult to Cardiology Routine Consulting Provider: [facility] Reason for consultation: elevated troponin DS: Diagnosis Discharge Diagnosis (1) Hypertensive urgency: Status: Acute (2) Elevated troponin: Status: Acute (3) Allergic reaction: Status: Acute DS: Summary Hospital Course Hospital Course: from initial hpi: 59-year-old female with a past medical history of hypertension presented to the hospital with a chief complaint of not feeling well. Patient reports that the past couple days she has been not feeling well. Also has had abdominal bloating. Denies any nausea or vomiting. Denies any chest pain or palpitations. Denies any headaches or blurry visions. Denies any numbness tingling or focal weakness. Denies any GI symptoms. Patient reported that she has history of high blood pressure. Has been taking losartan which was recently increased in dose. Mentions he has been compliant with her home losartan. When she checks her blood pressure at home the systolic was in 2 4th 2 days. Hence presented to the ER for further evaluation. Review of all the other systems is negative except mentioned above Per ER team, patient on presentation appears to have nonfocal exam. Blood pressure was in 200s systolic. Given clonidine. Blood pressure improved to 130s systolic. CT abdomen pelvis was done which showed no acute findings. Patient's troponin slightly elevated. EKG nonischemic. hospital course: Patient was admitted for hypertensive urgency. Blood pressures improved. Was seen by Cardiology recommended increasing losartan to 100 mg daily and adding amlodipine 5 mg daily and following up outpatient for CT angio and echocardiogram. Patient did have an episode of swelling of her upper lip unclear what the cause was possibly aspirin or other medication. It is recommended that she follows up with in classroom tutor to determine etiology. Time Attestation Discharge Coordination Time (in mins): 37 Quality: Safe Use of Opioids Does Pt have an Active Cancer Diagnosis on the Problem List?: No Quality: Stroke Does the patient have a stroke diagnosis?: No Physical Exam Vital Signs: Vital Signs: Last Vital Signs Temp 97.5 F 01/15/25 10:07 Pulse 77 01/15/25 10:07 Resp 16 01/15/25 10:07 BP 141/74 H 01/15/25 10:07 Pulse Ox 96 01/15/25 10:07 O2 Del Method Room Air 01/15/25 10:07 BMI result Body Mass Index 26.4 Const: General: comfortable and no acute distress Orientation/consciousness: patient oriented x3 HEENT: Other: Unremarkable Head: Yes normal to inspection Neck: Neck: Yes normal visual inspection Chest: Chest palpation & inspection: normal inspection of the chest Resp: Auscultation: clear to auscultation bilaterally Cardio: Palpation: normal PMI Heart sounds: S1 normal heart sound present, S2 normal heart sound present, no gallops, no murmurs and no rubs GI: Palpation (GI): Soft to palpation Back/Spine/Pelvis: Other: unremarkable Skin: General skin exam: no rashes or lesions noted Neuro: General: patient oriented x3 Extrem: General: Yes normal to inspection Psych: Mental Status: mental status grossly normal DS: Data Data Completed and Pending Labs on day of discharge: Laboratory Results - last 24 hr 01/14/25 01/14/25 01/14/25 20:38 21:08 22:15 WBC 7.7 RBC 4.01 L Hgb 12.6 Hct 37.1 MCV 92.5 MCH 31.4 MCHC 34.0 RDW 12.1 Plt Count 262 MPV 10.0 Immature Gran % (Auto) 0.4 Neut % (Auto) 59.8 Lymph % (Auto) 29.9 [place] % (Auto) 8.9 Eos % (Auto) 0.5 Baso % (Auto) 0.5 Lymph # (Auto) 2.3 [place] # (Auto) 0.7 Eos # (Auto) 0.0 Baso # (Auto) 0.0 Abs Immat Gran (auto) 0.03 Absolute Neuts (auto) 4.6 Absolute Nucleated RBC 0.000 Nucleated RBC % (auto) 0.0 PT 10.6 L INR 0.9 D-Dimer High Sensitivty < 150 Sodium 133 L Potassium 3.7 Chloride 102 Carbon Dioxide 19 L Anion Gap 16 BUN 10 Creatinine 0.70 Estim Creat Clear Calc 83.9 Estimated GFR > 60 Random Glucose 126 H Estimat Average Glucose Hemoglobin A1c % Calcium 9.0 Total Bilirubin 0.4 AST 34 H ALT 24 Alkaline Phosphatase 69 Troponin I High Sens < 2.7 12.4 D Total Protein 7.2 Albumin 4.2 Lipase 13 TSH Urine Color Urine Appearance Urine pH Ur Specific [place] Urine Protein Urine Glucose (UA) Urine Ketones Urine Blood Urine Nitrite Ur Leukocyte Esterase Urine RBC Urine WBC Ur Squamous Epith Cells Urine Bacteria Hyaline Casts 01/14/25 01/15/25 01/15/25 22:18 00:40 06:31 WBC 5.8 RBC 4.12 L Hgb 12.9 Hct 38.6 MCV 93.7 MCH 31.3 MCHC 33.4 RDW 12.1 Plt Count 264 MPV 10.5 Immature Gran % (Auto) 0.5 H Neut % (Auto) 68.9 Lymph % (Auto) 20.5 [place] % (Auto) 7.2 Eos % (Auto) 2.4 Baso % (Auto) 0.5 Lymph # (Auto) 1.2 [place] # (Auto) 0.4 Eos # (Auto) 0.1 Baso # (Auto) 0.0 Abs Immat Gran (auto) 0.03 Absolute Neuts (auto) 4.0 Absolute Nucleated RBC 0.000 Nucleated RBC % (auto) 0.0 PT INR D-Dimer High Sensitivty Sodium 137 Potassium 4.2 Chloride 103 Carbon Dioxide 26 Anion Gap 12 BUN 8 L Creatinine 0.67 Estim Creat Clear Calc 87.6 Estimated GFR > 60 Random Glucose 124 H Estimat Average Glucose 120 Hemoglobin A1c % 5.8 Calcium 9.1 Total Bilirubin 0.6 AST 26 ALT 23 Alkaline Phosphatase 64 Troponin I High Sens 35.3 H D Total Protein 6.7 Albumin 4.1 Lipase TSH 1.11 Urine Color Yellow Urine Appearance Clear Urine pH 6.5 Ur Specific [place] <= 1.005 Urine Protein Negative Urine Glucose (UA) Negative Urine Ketones 15 Urine Blood Negative Urine Nitrite Negative Ur Leukocyte Esterase Trace H Urine RBC 0-2 Urine WBC 0-5 Ur Squamous Epith Cells 0-2 Urine Bacteria None Seen Hyaline Casts 0-2 Discharge Plan Discharge Anticipated Discharge Date/Time: 01/15/25 11:11 Patient Disposition: Home, Self-Care Discharge Diagnosis: hypertension Referrals: Lele Tamayo DO [Physician] - 1 Week (swelling after asa ) Adamaris Cantu MD [Primary Care Provider] - 1 Week Discharge Medications: New amlodipine 5 mg tablet 5 mg PO DAILY Qty: 90 0RF losartan 100 mg tablet 100 mg PO DAILY Qty: 90 0RF Continued (DME) blood pressure monitor Kit See Rx Instructions .Route Qty: 1 0RF Rx Instructions: As directed multivitamin Tablet 1 tab PO DAILY cyanocobalamin (vitamin B-12) 500 mcg Tablet 500 mcg PO DAILY cholecalciferol (vitamin D3) [Vitamin D3] 25 mcg (1,000 unit) Tablet 25 mcg PO DAILY Discontinued losartan 50 mg tablet 50 mg PO DAILY 90 Days Qty: 90 1RF Discharge Orders: Discharge Order (Routine); Ordered 01/15/25 Ordered By: Edinson Cruz Diet: Advance to usual diet Activity on Discharge: As tolerated Stand Alone Forms: Patient Portal Discharge page Print Language: Scottish Care Plan Goals: recovery Health Concerns: hypertension, swelling Plan of Treatment: increase losartan 100mg daily, added amlodipine follow up with in classroom tutor to determine cause of swelling episode follow up with cardiology for CTA, echo Assessment: see above
== END 2025-01-15 12:47 | disposition home or self-care (01) ==
LOC: HO.ED 01-15 02:07 → HO.EDOVER 01-15 02:11 → HO.IMC 01-15 08:20
PROVIDERS: Physician Assistant; Admitting Provider Hospitalist; Emergency Provider Emergency Medicine; PCP Internal Medicine; Visit Provider Internal Medicine
DX: I16.0 Hypertensive urgency (principal); R00.0 Tachycardia, unspecified; R14.0 Abdominal distension (gaseous); I10 Essential (primary) hypertension; R79.89 Other specified abnormal findings of blood chemistry; R10.10 Upper abdominal pain, unspecified; T78.40XA Allergy, unspecified, initial encounter; X58.XXXA Exposure to other specified factors, initial encounter; Z79.899 Other long term (current) drug therapy
CPT/HCPCS: 36415; 70450; 76705; 80053; 81001; 83036; 83690; 84443; 84484; 85025; 85379; 85610; 93005; 96374; 99222; 99285; J2405

== ENCOUNTER → 2025-01-14 20:14 | Outpatient (BNV) | payer BC, SELFPAY | PROVIDERS: Admitting Provider Hospitalist; Emergency Provider Emergency Medicine; PCP Internal Medicine; Visit Provider Internal Medicine | DX: R00.0 Tachycardia, unspecified (principal); R94.31 Abnormal electrocardiogram [ECG] [EKG]; R03.0 Elevated blood-pressure reading, without diagnosis of hypertension | CPT/HCPCS: 93010 ==

== ENCOUNTER → 2025-01-14 21:39 | Outpatient (BNV) | payer BC, SELFPAY | PROVIDERS: Emergency Provider Emergency Medicine; PCP Internal Medicine; Visit Provider Radiology Diagnostic Radiology | DX: R10.84 Generalized abdominal pain (principal); K76.0 Fatty (change of) liver, not elsewhere classified | CPT/HCPCS: 76705 ==

== ENCOUNTER 2025-01-15 01:59 | Outpatient (BNV) | payer BC, SELFPAY | END 2025-01-15 07:48 | PROVIDERS: Admitting Provider Hospitalist; Emergency Provider Emergency Medicine; PCP Internal Medicine; Visit Provider Radiology Diagnostic Radiology | DX: S02.842A Fracture of lateral orbital wall, left side, initial encounter for closed fracture (principal) | CPT/HCPCS: 70450 ==

== ENCOUNTER → 2025-01-15 01:59 | Outpatient (BNV) | payer BC, SELFPAY | PROVIDERS: Admitting Provider Hospitalist; Emergency Provider Emergency Medicine; PCP Internal Medicine; Visit Provider Internal Medicine | DX: I16.0 Hypertensive urgency (principal); R79.89 Other specified abnormal findings of blood chemistry; T78.40XA Allergy, unspecified, initial encounter; I10 Essential (primary) hypertension | CPT/HCPCS: 99235; 99499 ==

== ENCOUNTER → 2025-01-15 01:59 | Outpatient (BNV) | payer BC, SELFPAY | PROVIDERS: Admitting Provider Hospitalist; Emergency Provider Emergency Medicine; PCP Internal Medicine; Visit Provider Internal Medicine | DX: I16.0 Hypertensive urgency (principal); R79.89 Other specified abnormal findings of blood chemistry; T78.40XA Allergy, unspecified, initial encounter | CPT/HCPCS: 93010; 99223 ==

== ENCOUNTER 2025-01-20 07:22 | Outpatient (AMB) | payer BC, SELFPAY ==
--- OUTSIDE RECORDS SUMMARY | 2025-01-20 07:25 | XMS_ITS | Clinical Summary ---
Author Organization [facility] Address [address] [place] [address] Care Team Providers Care Residential Care Officer Name Role Phone Alicia Song MD Primary Care Provider Social History Tobacco Use Types Packs/Day Years Used Date Smoking Tobacco: Never Assessed Comments Unknown Sex and Gender Information Value Date Recorded Sex Assigned at Not on file Legal Sex Female 4:34 PM EDT Gender Identity Not on file Sexual Orientation Not on file Plan of Treatment Health Maintenance Due Date Last Done Comments Hepatitis C Virus Screening 1965 HIV Screening 1976 DTaP/Tdap/Td Vaccines (1 - Tdap) 1982 Pneumococcal Vaccines 50+ (1 of 1 - PCV) 2013 Zoster (Shingles) Vaccine (1 of 2) 2013 COVID-19 Vaccine ( - 2023-2 5 season) 2024 RSV Vaccine 60 years and old er and Patients (1 - 1-dose 75+ series) 2038 Hepatitis B Vaccines Aged Out No long er eligible based on patient's age to complete this topic Care Teams Residential Care Officer Relationship Specialty Start Date End Date Alicia Song MD [address] [place] [address] PCP - General
--- NOTE | 2025-01-20 07:27 | A.OFFPC_ITS ---
Vital Signs 01/20/25 07:28 Height 5 ft 5 in Weight 152 lb BMI 25.3 BP 138/80 Blood Pressure Location Lt brachial Position Sitting Pulse 70 Pulse Source Pulse Oximeter Pulse Oximetry (%) 98 Oxygen Delivery Method Room Air Intake Visit Reasons: [place] [facility] [place]N Allergies No Known Allergies Allergy (Verified 01/20/25 07:28) Tobacco use date assessed: 01/20/25 Dental Screening Dental Screen Date: 01/20/25 Did you have a dental visit in the last 12 months?: Yes Did you have a dental problem in the last 6 months where you did not have access to dental care?: No Was dental information given to patient?: Patient has dentist HPI [facility] TCM Information Date of Discharge 01/16/25 Discharged From [facility] [employer] [facility] HPI Comments History of Present Illness Details 60 y/o Female patient who [facility] to [facility] today for TCM. She was [place] [facility] [place] due to Hypertension Urgency and abdominal bloating/Pain. CT abdomen pelvis was done which showed no acute findings. Patient's Troponin was slightly elevated. EKG non-ischemic. Her Losartan Dose was increased to 100 mg and amlodipine 5 mg was added to her regimen.She was told to f/u with [facility]. Patient did have an episode of swelling of her upper lip while in the hospital - it is unclear what caused it. Hospital suspected possibly aspirin or other medication. Pt is waiting for an appointment with cardiology - she is waiting for an Echo to be scheduled. [facility] Medical History Essential hypertension Overweight Surgical History Hx of breast implants, bilateral Family History Unknown Adopted Social History Housing: House Alcohol intake: current Alcohol intake frequency: a few times a week Alcohol type: wine Patient Tobacco Use Status: Never used Tobacco Tobacco use type: Cigarette e-Cigarette/Vaping Use: Never Used Second Hand Smoke Exposure: No service: No Current occupational status: employed Current occupational exposures/hazards: No Gender identity: Female Cognitive needs: No Hearing needs: No Vision needs: Yes Female Reproductive History Menstrual Age of Menarche: 11 Questionnaire Thrive Questionnaire Date Thrive assessed: 01/20/25 I am a: Patient What is your living situation today?: I have a steady place to live Within the past 12 months, did the food you bought not last and you didn't have the money to get more?: Never true Within the past 12 months, did you worry whether your food would run out before you got money to buy more?: Never true Do you have trouble paying for medicines?: No Do you have trouble getting transportation to medical appointments?: No Do you have trouble paying your heating and electricity bill?: No Do you have trouble taking care of your child, family member or friend?: No Do you have trouble with day-to-day activities such as bathing, preparing meals, shopping, managing finances, etc.?: No Are you currently unemployed and looking for a job?: No Are you interested in more education?: No Please select the resources that you would like help with: None Currently or been in a relationship where the following occur: No concerns reported THRIVE Score: 0 CHRISTINA-7 AMB Questionnaire CHRISTINA-7 Date CHRISTINA - 7 assessed: 10/05/24 Source: Developed by Drs. Kang Gonzalez, Gabriela Barnard, Dariel Myles and colleagues, with an educational fernandez from [employer]. Review of Systems Const All systems reviewed & are unremarkable except as noted in HPI and below Physical exam (Primary Care) Vital Signs: Last Vital Signs Pulse 70 01/20/25 07:28 BP 138/80 01/20/25 07:28 Pulse Ox 98 01/20/25 07:28 Oxygen Delivery Method Room Air 01/20/25 07:28 BMI result Body Mass Index 25.3 Tobacco/Smoking Status: Tobacco use Status Tobacco use date assessed 01/20/25 01/20/25 07:34 Patient Tobacco Use Status Never used Tobacco 01/20/25 07:34 Tobacco use type Cigarette 01/20/25 07:34 e-Cigarette/Vaping Use Never Used 01/20/25 07:34 Thrive Assessment: Date of Thrive Assessment Date Thrive assessed 01/20/25 01/20/25 07:34 Currently or been in a relationship where the following occur: No concerns reported Const General: no acute distress Nutritional Appearance: well nourished Orientation/consciousness: patient oriented x3 HENMT Head: Yes normocephalic Resp Effort & Inspection: normal respiratory effort and able to speak in complete sentences Auscultation: clear to auscultation bilaterally, no crackles, no rales, no rhonchi and no wheezes Cardio Rhythm: regular rhythm Heart sounds: S1 normal heart sound present and S2 normal heart sound present Neuro General: patient oriented x3, gait normal and moves all extremities Psych Speech and movement: Normal speech and movement present Coding Level of Care Code TCM Mod MDM <= 7 Days Diagnoses Hypertensive urgency I16.0 Hypertension, unspecified type I10 Hypertension type: unspecified Time Spent (min) 20 Assessment & Plan Assessment & Plan (1) Hypertensive urgency: Code(s): I16.0 - Hypertensive urgency Category: Medical Plan: Resolved. (2) Hypertension: Code(s): I10 - Essential (primary) hypertension Category: Medical Qualifiers: Hypertension type: unspecified Qualified Code(s): I10 - Essential (primary) hypertension Plan: Continue on Losartan and Amlodipine as prescribed. Managed by Cardiology.
[2025-01-20 07:28] VITALS: BP 138/80; PULSE 70; O2SAT 98; BMI 25.3
== END 2025-01-20 10:21 | disposition home or self-care (01) ==
LOC: HO.HMCH 07:23
PROVIDERS: PCP Internal Medicine; Visit Provider Nurse Practitioner Family
DX: I16.0 Hypertensive urgency (principal); I10 Essential (primary) hypertension

== ENCOUNTER → 2025-01-20 07:22 | Outpatient (BNVA) | payer BC, SELFPAY | PROVIDERS: PCP Internal Medicine; Visit Provider Nurse Practitioner Family | DX: Z13.89 Encounter for screening for other disorder (principal) ==

== ENCOUNTER 2025-06-16 07:53 | Outpatient (AMB) | payer BC, SELFPAY ==
--- OUTSIDE RECORDS SUMMARY | 2025-06-16 07:57 | XMS_ITS | Clinical Summary ---
Author Organization [facility] Address [address] [place] [address] Care Team Providers Care Nut Cracker Name Role Phone Alicia Song MD Primary Care Provider [phone] Social History Tobacco Use Types Packs/Day Years [...] COVID-19 Vaccine ( - 2023-2 5 season) 2025 RSV Vaccine 60 years and old er and Patients (1 - 1-dose 75+ series) 2038 Hepatitis B Vaccines Aged Out No long er eligible based on patient's age to complete this topic Care Teams Nut Cracker Relationship Specialty Start Date End Date Alicia Song MD [address] [place] [address] PCP - General
[2025-06-16 08:00] VITALS: BP 136/72; PULSE 62; O2SAT 98; BMI 25.3
--- NOTE | 2025-06-16 08:00 | MHC.PC.OV ---
Vital Signs 06/16/25 08:00 Height 5 ft 5 in Weight 152 lb BMI 25.3 BP 136/72 Blood Pressure Location Lt brachial Position Sitting Pulse 62 Pulse Source Pulse Oximeter Pulse Oximetry (%) 98 Oxygen Delivery Method Room Air Intake Visit Reasons: BP Technician Inventory Specialist Required: No Accompanied by: Self / Same As Patient Allergies amlodipine Adverse Reaction (Intermediate, Verified 06/16/25 08:09) Ankle swelling Medication List - Last Reconciled 06/16/25 by Adamaris Centeno MD blood pressure monitor As directed cholecalciferol (vitamin D3) (Vitamin D3) 25 mcg PO DAILY cyanocobalamin (vitamin B-12) 500 mcg PO DAILY losartan 100 mg PO DAILY multivitamin 1 tab PO DAILY Tobacco use date assessed: 01/20/25 Dental Screening Dental Screen Date: 01/20/25 HPI HPI Comments History of Present Illness Details The patient is a 60-year-old female presenting for follow-up of blood pressure management and evaluation of menopausal symptoms. Her blood pressure has been well-controlled with daily walking, and she was hospitalized in December for elevated blood pressure, during which a CT scan was performed. She is currently on losartan 100 mg and adheres to her medication regimen. She experienced ankle swelling from amlodipine, which was discontinued after a week. Her BMI is 25, slightly above normal, with no weight loss despite regular exercise. Preventative care includes scheduled blood work in September for vitamin B12, vitamin D, and cholesterol levels. [facility] Medical History Essential hypertension Overweight Surgical History Hx of breast implants, bilateral Family History Unknown Adopted Social History Housing: House Alcohol intake: current Alcohol intake frequency: a few times a week Alcohol type: wine Patient Tobacco Use Status: Never used Tobacco Tobacco use type: Cigarette e-Cigarette/Vaping Use: Never Used Second Hand Smoke Exposure: No service: No Current occupational status: employed Current occupational exposures/hazards: No Gender identity: Female Cognitive needs: No Hearing needs: No Vision needs: Yes Female Reproductive History Menstrual Age of Menarche: 11 Questionnaire PHQ-9 Over the last 2 weeks, how often have you been bothered by any of the following problems? 1. Little interest or pleasure in doing things: not at all 2. Feeling down, depressed, or hopeless: not at all 3. Trouble falling or staying asleep, or sleeping too much: not at all 4. Feeling tired or having little energy: more than half the days 5. Poor appetite or overeating: not at all 6. Feeling bad about yourself - or that you are a failure or have let yourself or your family down: not at all 7. Trouble concentrating on things, such as reading the newspaper or watching television: not at all 8. Moving or speaking so slowly that other people could have noticed. Or the opposite - being so fidgety or restless that you have been moving around a lot more than usual: not at all 9. Thoughts that you would be better off or of hurting yourself in some way: not at all Total score: 2 Depression Screening Interpretation: Negative Depression Screening Done: Yes 37959 - PHQ-9 Billing: Yes Source: Developed by Drs. Kang Gonzalez, Gabriela Barnard, Dariel Myles and colleagues, with an educational fernandez from [employer]. Thrive Questionnaire Date Thrive assessed: 10/02/24 I am a: Patient What is your living situation today?: I have a steady place to live Within the past 12 months, did the food you bought not last and you didn't have the money to get more?: Never true Within the past 12 months, did you worry whether your food would run out before you got money to buy more?: Never true Do you have trouble paying for medicines?: No Do you have trouble getting transportation to medical appointments?: No Do you have trouble paying your heating and electricity bill?: No Do you have trouble taking care of your child, family member or friend?: No Do you have trouble with day-to-day activities such as bathing, preparing meals, shopping, managing finances, etc.?: No Are you currently unemployed and looking for a job?: No Are you interested in more education?: No Please select the resources that you would like help with: None Currently or been in a relationship where the following occur: No concerns reported THRIVE Score: 0 AUDIT C Alcohol Use Questionnaire (AUDIT-C) 1. How often do you have a drink containing alcohol?: 2-3 times a week 2. How many drinks containing alcohol do you have on a typical day when you are drinking?: 1 or 2 3. How often do you have six or more drinks on one occasion?: Never Total Score: 3 Score Reviewed/Action Taken: No CHRISTINA-7 AMB Questionnaire CHRISTINA-7 Date CHRISTINA - 7 assessed: 10/05/24 Source: Developed by Drs. Kang Gonzalez, Gabriela Barnard, Dariel Myles and colleagues, with an educational fernandez from [employer]. Review of Systems Const All systems reviewed & are unremarkable except as noted in HPI and below Card Denies chest pain at rest, Denies chest pain with activity, Denies edema, Denies irregular heart rhythm, Denies claudication, Denies dyspnea, Denies dyspnea on exertion, Denies orthopnea, Denies paroxysmal nocturnal dyspnea and Denies slow heart rate Resp Denies cough, Denies dyspnea and Denies dyspnea on exertion Physical exam (Primary Care) Vital Signs: Last Vital Signs Pulse 62 06/16/25 08:00 BP 136/72 06/16/25 08:00 Pulse Ox 98 06/16/25 08:00 Oxygen Delivery Method Room Air 06/16/25 08:00 BMI result Body Mass Index 25.3 Tobacco/Smoking Status: Tobacco use Status Tobacco use date assessed 01/20/25 06/16/25 08:04 Patient Tobacco Use Status Never used Tobacco 06/16/25 08:04 Tobacco use type Cigarette 06/16/25 08:04 e-Cigarette/Vaping Use Never Used 06/16/25 08:04 PHQ-9: PHQ-9 Score PHQ-9: Total score 2 06/16/25 08:12 Depression Screening Interpretation: Negative Thrive Assessment: Date of Thrive Assessment Date Thrive assessed 10/02/24 06/16/25 08:04 Currently or been in a relationship where the following occur: No concerns reported Resp Effort & Inspection: normal respiratory effort Auscultation: clear to auscultation bilaterally Cardio Jugular venous distension: no JVD Rate: regular rate Rhythm: regular rhythm Heart sounds: S1 normal heart sound present and S2 normal heart sound present Extrem General: Yes full ROM Coding Level of Care Code Est Pt Level 3 (40094) Diagnoses Essential hypertension I10 Hypovitaminosis D E55.9 Additional Codes PHQ-9 - 92762 - PHQ-9 Billing: Yes ([id number]) Time Spent (min) 19 Assessment & Plan Assessment & Plan (1) Essential hypertension: Comment: At the present moment she refused antihypertensives. Code(s): I10 - Essential (primary) hypertension Category: Medical (2) Hypovitaminosis D: Code(s): E55.9 - Vitamin D deficiency, unspecified Category: Medical Plan Plan Patient was informed and verbally consented to the use of an ambient scribe for clinic note documentation during this visit. 1. Essential (primary) hypertension I10 The patient will continue with losartan 100 mg for blood pressure management, which has been effective in maintaining control. Blood work is scheduled for September to monitor vitamin B12 and vitamin D levels, as well as cholesterol, to ensure comprehensive management of her cardiovascular health. 2. Vitamin D deficiency, unspecified E55.9 Continue vit D supplements Orders: Orders Lipid Panel 4 Months E78.5 - Hyperlipidemia, unspecified, I10 - Essential (primary) hypertension Comprehensive Llewellyn. Panel Fast 4 Months I10 - Essential (primary) hypertension Vitamin B12 and Folate 4 Months E53.8 - Deficiency of other specified B group vitamins Vitamin D 25-OH Total 4 Months E55.9 - Vitamin D deficiency, unspecified Medications: Changed From cyanocobalamin (vitamin B-12) 500 mcg PO DAILY To cyanocobalamin (vitamin B-12) 500 mcg PO DAILY 90 tabs 1RF 90 days
== END 2025-06-16 08:17 | disposition home or self-care (01) ==
LOC: HO.HMCH 07:54
PROVIDERS: PCP Internal Medicine; Visit Provider Internal Medicine
DX: I10 Essential (primary) hypertension (principal); E55.9 Vitamin D deficiency, unspecified

== ENCOUNTER → 2025-06-16 07:53 | Outpatient (BNVA) | payer BC, SELFPAY | PROVIDERS: PCP Internal Medicine; Visit Provider Internal Medicine | DX: I10 Essential (primary) hypertension (principal); E78.5 Hyperlipidemia, unspecified; E53.8 Deficiency of other specified B group vitamins; E55.9 Vitamin D deficiency, unspecified | CPT/HCPCS: 96127 ==

== ENCOUNTER 2025-09-08 07:27 | Outpatient (REF) | payer BC, SELFPAY ==
--- NOTE | ~2025-09-08 | MM_ITS ---
EXAMINATION: MM SCREENING DIGITAL BREAST TOMOSYNTHESIS, BILATERAL CLINICAL INFORMATION: Screening. Asymptomatic. COMPARISON: Mammography: Comparison is made with relevant avialable priors. TECHNIQUE: Digital mammography is performed in craniocaudal and mediolateral oblique views along with computer-aided detection (CAD). Digital breast tomosynthesis is performed in implant-displaced craniocaudal and implant-displaced mediolateral oblique views along with computer-aided detection (CAD). FINDINGS: There are scattered areas of fibroglandular density. Bilateral retropectoral implants are normal-appearing. There are no significant masses, abnormal calcifications, or other abnormalities. MM/MM tomosynthesis screen imp BI IMPRESSION: There are no significant changes from prior study. ASSESSMENT: BI-RADS Category 2: Benign RECOMMENDATION: Routine annual mammography screening. 1 year F/U This patient's information was entered into a reminder system with a target due date for their next mammogram. Electronically signed by: Enedina Mon DO 09/11/2025 11:11 AM [facility]
--- OUTSIDE RECORDS SUMMARY | 2025-09-08 07:30 | XMS_ITS ---
Author Organization Unknown ENCOUNTERS Encounter Performer Location Date Diagnosis Diagnosis Status Outpatient [facility] [address] [place] [address] [id number] [facility] Emergency [facility] [address] [place] [address] [id number] [facility] Pre [facility]mit [facility] ED Physician [facility] [address] [place] [address] [id number] Pre Admit [facility] [address] [place] [address] [id number] Outpatient [facility] [address] [place] [address] [id number] [facility] Emergency [facility] [address] [place] [address] [id number] [facility] *Note: Encounters from your own facility or health system may be excluded. Allergies, Adverse Reactions, Alerts Allergen Type Severity Identification Date Medications Name Date Quantity Days Supplied GPI Number
--- OUTSIDE RECORDS SUMMARY | 2025-09-08 07:30 | XMS_ITS | Clinical Summary ---
Author Organization [facility] Address [address] [place] [address] Care Team Providers Care Supervisor [employer] Name Role Phone Alicia Song MD Primary Care Provider [phone] Social History Tobacco Use Types Packs/Day Years [...] of 2) 2013 COVID-19 Vaccine ( - 2024-2 6 season) 2025 RSV Vaccine 50 years and old er and Patients (1 - 1-dose 75+ series) 2038 Hepatitis B Vaccines Aged Out No long er eligible based on patient's age to complete this topic Care Teams Supervisor [employer] Relationship Specialty Start Date End Date Alicia Song MD [address] [place] [address] PCP - General
== END 2025-09-08 07:28 | disposition home or self-care (01) ==
LOC: HO.MAMMO 07:27
PROVIDERS: PCP Internal Medicine; Visit Provider Internal Medicine
DX: Z12.31 Encounter for screening mammogram for malignant neoplasm of breast (principal)
CPT/HCPCS: 77063; 77067

== ENCOUNTER → 2025-09-08 07:30 | Outpatient (BNV) | payer BC, SELFPAY | PROVIDERS: PCP Internal Medicine; Visit Provider Internal Medicine | DX: Z12.31 Encounter for screening mammogram for malignant neoplasm of breast (principal) | CPT/HCPCS: 77063; 77067 ==